=== PATIENT | male | born 1965 | race Caucasian/White ===

== ENCOUNTER 2024-10-05 08:55 | Inpatient (IN) | payer MEDICARE, MEDICAID ==
[~2024-10-05] VITALS: Ht 185.4 cm; Wt 76.0 kg
[2024-10-05 09:02] VITALS: PULSE 56; RESP 10; O2SAT 100
--- NOTE | 2024-10-05 09:39 | DVH ---
CLINICAL INFORMATION: 59 years old, Male; altered mental status. TECHNIQUE: Axial imaging was obtained through the brain without contrast. Coronal and sagittal refor matted images were obtained, reviewed, and stored. Images were reviewed in brain and bone windows. A ll CT scans at this medical facility are performed using dose modulation techniques as appropriate to a performed exam including the following: Automated exposure control was utilized; adjustment of the MA and/or KV according to patient size; and use of iterative reconstruction technique. CTDIvol = 62.38 mGy DLP = 1227.84 mGy-cm COMPARISON: None FINDINGS: There is no acute intracranial hemorrhage or extraaxial fluid collection. No mass effect o r midline shift. Scattered areas of hypoattenuation are seen in the periventricular and subcortical w malka matter, which are nonspecific but most likely sequelae of small vessel ischemic disease. There i s a more focal areaof encephalomalacia in the right frontal lobe, likely sequela of prior infarct. As ymmetric prominence of the right lateral ventricle compared to the left due to ex vacuo dilatation se condary to the adjacent encephalomalacia. The calvarium is unremarkable. Paranasal sinuses and ma stoid air cells are clear. IMPRESSION: 1. No CT evidence of acute intracranial abnormality. 2. Nonacute findings as described above.
--- NOTE | 2024-10-05 09:44 | ED.PDOC ---
HPI (NEURO) HPI Comments 59Y M with PMHx CVA (lt sided deficits) and ESRD on HD presents to ED via EMS for chief complaint seizure. Per EMS, pt began to seize during breakfast and possibly aspirated on the food. Upon EMS arrival to scene, pt was A&Ox0, nonverbal, and in postictal state. No h/o seizures reported. No symptoms reported at this time as pt is altered. Chief Complaint: ALOC Time Seen by MD: 09:08 Reviewed Notes: Nurses Notes, Speech Coach Notes, Medications, Allergies Information Source: Emergency Med Personnel Mode of Arrival: EMS Brought in by: EMS Severity: Severe Dizziness/Weakness Severity: Unable to do activities Headache Severity: None Timing: Minutes Duration: Since onset Prehospital treatment: 12 Lead EKG, Oxygen Seizure Quality: Single Episodes Onset: With light exertion Circumstances: Spontaneous Symptoms: Other Before: Normal After: Confusion History of: CVA Modifying factors: Nothing Associated Signs and Symptoms: None Past Medical History PAST MEDICAL HISTORY: CVA, ESRD Surgical History: Unobtainable Family History Family History: Unobtainable Social History Smoker: Unobtainable Alcohol: Unobtainable Drugs: Unobtainable Lives In: Unobtainable Unable to Obtain due to: Altered Mental Status, Medical Urgency Physical Exam General Appearance: No Apparent Distress, Normal HEENT: Normal ENT Inspection, Pharynx Normal, TMs Normal Neck: Full Range of Motion, Non-Tender, Normal, Normal Inspection Respiratory: Chest Non-Tender, Lungs Clear, No Accessory Muscle Use, No Respiratory Distress, Normal Breath Sounds Cardiovascular: No Edema, No JVD, No Murmur, No Gallop, Normal Peripheral Pulses, Regular Rate/Rhythm Breast Exam: Deferred Gastrointestinal: No Organomegaly, Non Tender, No Pulsatile Mass, Normal Bowel Sounds, Soft Genitalia: Deferred Pelvic: Deferred Rectal: Deferred Extremities: No calf tenderness, Normal capillary refill, Normal inspection, Normal range of motion, Non-tender, No pedal edema Musculoskeletal : Location: Left Apperance: Other (contracture) Neurologic: Alert, booking police officer II-XII nml as Tested, Motor Weakness (left sided weakness), Normal Affect, Normal Mood, No Sensory Deficits Cerebellar Function: Normal Reflexes: Normal Skin: Dry, Normal Color, Warm Lymphatic: No Adenopathy EKG EKG : Pulse Rate (adult): 57 [place]: LAD Cardiac Rhythm: Junctional Block: None Hypertrophy: None ST: Nonsp Was a procedure done? Was a procedure done?: No Differential Diagnosis (SZ) Seizure: Hyperventilation, Psychogenic Seizure, Anticonvulsant Withdrawl, Closed Head Injury, CVA/TIA, Drug Ingestion, Hypocalcemia, Hypoglycemia, Hyponatremia, Hypoxemia, Idiopathic, Mass Lesion, Syncope, Epilepsy-Break Through, Epilepsy-Status, Other (aspiration pneumonia) X-Ray, Labs, Meds, VS Vital Signs Date Time Temp Pulse Resp B/P (MAP) Pulse Ox O2 Delivery O2 Flow Rate FiO2 10/05/24 11:04 52 177/50 10/05/24 10:26 58 190/44 10/05/24 10:03 57 10/05/24 09:02 56 10 100 10/05/24 09:02 56 10 100 Nasal Cannula* 2 28 10/05/24 08:58 97.8 140 20 197/83 (121) 96 Lab Test 10/05/24 10:15 10/05/24 09:21 Range/Units Troponin I High Sensitivity 19 20 </=54 ng/L White Blood Count 3.3 L 4.4-10.8 10^3/uL Red Blood Count 3.38 L 4.5-5.90 10^6/uL Hemoglobin 11.7 L 13.5-17.5 g/dL Hematocrit 34.7 L 41.0-53.0 % Mean Corpuscular Volume 102.8 H 80.0-100.0 fL Mean Corpuscular Hemoglobin 34.6 H 28.0-32.0 pg Mean Corpuscular Hemoglobin Concent 33.7 32.0-36.0 g/dL Red Cell Distribution Width 17.7 H 11.8-14.3 % Platelet Count 161 140-450 10^3/uL Mean Platelet Volume 7.2 6.9-10.8 fL Neutrophils (%) (Auto) 67.3 37.0-80.0 % Lymphocytes (%) (Auto) 18.6 10.0-50.0 % Monocytes (%) (Auto) 6.2 0.0-12.0 % Eosinophils (%) (Auto) 6.9 0.0-7.0 % Basophils (%) (Auto) 1.0 0.0-2.0 % Neutrophils # (Auto) 2.2 1.6-8.6 10 ^3/uL Lymphocytes # (Auto) 0.6 0.4-5.4 10 ^3/uL Monocytes # (Auto) 0.2 0-1.3 10 ^3/uL Eosinophils # (Auto) 0.2 0-0.8 10 ^3/uL Basophils # (Auto) 0 0-0.2 10 ^3/uL Nucleated Red Blood Cells 0.1 % Sodium Level 140 136-145 mmol/L Potassium Level 5.1 3.5-5.1 mmol/L Chloride Level 105 98-107 mmol/L Carbon Dioxide Level 29 20-31 mmol/L Anion Gap 6 5-15 Blood Urea Nitrogen 54 H 9-23 mg/dL Creatinine 5.64 H 0.700-1.30 mg/dL Glomerular Filtration Rate Calc 11 >90 mL/min BUN/Creatinine Ratio 9.6 L 10.0-20.0 Serum Glucose 76 74-106 mg/dL Calcium Level 8.0 L 8.7-10.4 mg/dL Plasma/Serum Blood Alcohol < 3.0 <10 mg/dL Current Medications Medications (Trade) Dose Ordered Sig/Terrance Route Start Time Stop Time Status Last Admin Metoprolol Tartrate (Lopressor) 2.5 mg ONCE ONCE IV 10/05/24 10:15 10/05/24 10:16 DC 10/05/24 10:26 Levetiracetam 100 ml @ 400 mls/hr ONCE ONCE IV 10/05/24 10:30 10/05/24 10:44 DC 10/05/24 10:27 [place] [id number] Ph: [phone] DIAGNOSTIC IMAGING Diagnostic Imaging Report : [id number] Signed PATIENT: GILLIAN WEISS ACCT: [id number] UNIT: [id number] : 1965 LOC: ER ROOM / BED: / AGE / SEX: 59 / M ADM STATUS: REG ER SERVICE 5 ORDERING PHYSICIAN: MAE ODOM MD PROCEDURE(s): CXRP - CHEST PORTABLE REASON: r/o aspiration ORDER NUMBER(s): [id number], ACCESSION NUMBER(s): [id number] CHEST RADIOGRAPH Indication: r/o aspiration Technique: Single frontal view of the chest was obtained Comparison: None FINDINGS: Lines and Tubes: None Lungs: Bibasilar opacites. Pleura: Small bilateral effuions. No pneumothorax. Cardiomediastinal contours: Unremarkable Bones: No acute osseous abnormality. IMPRESSION: Bibasilar opacities with small bilateral effusions. Aspiration pneumonia not excluded. ATED BY: JATINDER BLAKE MD DICTATED DATE/TIME: 10/05/24941 SIGNED BY: JATINDER BLAKE MD SIGNED DATE/TIME: 10/05/24941 CC: [place] [address] Ph: [phone] DIAGNOSTIC IMAGING Diagnostic Imaging Report : [id number] Signed PATIENT: GILLIAN WEISS ACCT: [id number] UNIT: [id number] : 1965 LOC: ER ROOM / BED: / AGE / SEX: 59 / M ADM STATUS: REG ER SERVICE 7 ORDERING PHYSICIAN: MAE ODOM MD PROCEDURE(s): HWOCT - HEAD WITHOUT CONTRAST REASON: ALTERED ORDER NUMBER(s): [id number], ACCESSION NUMBER(s): [id number] CLINICAL INFORMATION: 59 years old, Male; altered mental status. TECHNIQUE: Axial imaging was obtained through the brain without contrast. Coronal and sagittal reformatted images were obtained, reviewed, and stored. Images were reviewed in brain and bone windows. All CT scans at this medical facility are performed using dose modulation techniques as appropriate to a performed exam including the following: Automated exposure control was utilized; adjustment of the MA and/or KV according to patient size; and use of iterative reconstruction technique. CTDIvol = 62.38 mGy DLP = 1227.84 mGy-cm COMPARISON: None FINDINGS: There is no acute intracranial hemorrhage or extraaxial fluid collection. No mass effect or midline shift. Scattered areas of hypoattenuation are seen in the periventricular and subcortical white matter, which are nonspecific but most likely sequelae of small vessel ischemic disease. There is a more focal areaof encephalomalacia in the right frontal lobe, likely sequela of prior infarct. Asymmetric prominence of the right lateral ventricle compared to the left due to ex vacuo dilatation secondary to the adjacent encephalomalacia. The calvarium is unremarkable. Paranasal sinuses and mastoid air cells are clear. IMPRESSION: 1. No CT evidence of acute intracranial abnormality. 2. Nonacute findings as described above. ATED BY: NIRMAL FLORES DO DICTATED DATE/TIME: 10/05/24935 SIGNED BY: NIRMAL FLORES DO SIGNED DATE/TIME: 10/05/24935 CC: Time of 1ST Reevaluation: 09:38 Reevaluation 1ST: Unchanged (cardiac rhythm- junctional ) Time of 2ND Reevaluation: 09:53 Reevaluation 2ND: Resolved (pt is now awake, alert, with at bedside. 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) Patient Education/Counseling: Diagnosis, Treatment, Prognosis, Need For Follow Up Family Education/Counseling: Diagnosis, Treatment, Prognosis, Need For Follow Up, No Family Present Additional Information I reviewed the following notes from patient's past medical encounters: None The following tests were ordered, and results were reviewed by me: EKG x3, CBC, BMP, Blood alcohol, UA, Troponin x3, CXR, CT head WO contrast Additional Information was gathered from interviewing the following independent historians: EMS I reviewed and agreed with the following test results read by other providers: CXR, CT head WO contrast I discussed treatment and results with medical personnel. pt is more alert, but still sleepy. he can be awaken to communicate but goes back to sleep. is at bedside ane reports witnessing him aspirate. cxr has findings to support aspiration. he will be admitted for lethargy, aspiration pneumonia, hypertensive emergency, eskd Departure 1 Departure Time of Disposition: 11:20 Impression: Primary Impression: Aspiration pneumonia Qualified Codes: J69.0 - Pneumonitis due to inhalation of food and vomit Additional Impressions: ESRD (end stage renal disease) Breakthrough seizure Hypertensive emergency Altered mental state Qualified Codes: R40.0 - Somnolence Disposition: ADMITTED INPATIENT Admit to: Tele Condition: Serious Discharged With: Self, Spouse Critical Care Note Critical Care Time?: Yes (55 min-critical care time only) Critical care comment: Due to concerns for patients condition deteriorating, the care required my highest level of attention and readiness to intervene. I assessed the patient, reviewed the medical records, ordered the appropriate tests and treatments, then reassessed for results and responsiveness. I communicated with medical personnel and consultants and formulated a plan of care. Total critical care time excludes any procedures Stability Stability form required: No Heart Score Heart Score: Heart Score Response (Comments) Value History N/A 0 EKG N/A 0 Age N/A 0 Risk Factors N/A 0 Troponin N/A 0 Total 0 I personally scribed for MAE ODOM MD ([facility]) on 10/05/24 at 09:44. Electronically submitted by Ariane Capps ([employer]). I personally scribed for MAE ODOM MD ([facility]) on 10/05/24 at 09:51. Electronically submitted by Ariane Capps ([employer]). MAE ODOM MD Oct 05, 2024 09:44
[2024-10-05 10:11] LABS: Anion Gap 6 (5-15); Carbon Dioxide 29 mmol/L (20-31); Chloride 105 mmol/L (98-107); Potassium 5.1 mmol/L (3.5-5.1); Sodium 140 mmol/L (136-145)
[2024-10-05] MEDS: cloNIDine HCL 0.1 MG TAB PO ONE (10:14)
[2024-10-05] MEDS: levETIRAcetam 500 MG TAB PO ONE (10:14)
[2024-10-05] MEDS: PHENYTOIN 100 MG/4 ML SUSP GT ONE (10:14)
[2024-10-05 10:15] LABS: Basophils # (auto) 0 10 ^3/uL (0-0.2); Eosinophils # (auto) 0.2 10 ^3/uL (0-0.8); Hematocrit 34.7 % (41.0-53.0); Lymphocytes # (auto) 0.6 10 ^3/uL (0.4-5.4); Mean Corpuscular Hemoglobin 34.6 pg (28.0-32.0); Monocytes # (auto) 0.2 10 ^3/uL (0-1.3); Neutrophils # (auto) 2.2 10 ^3/uL (1.6-8.6)
[2024-10-05 10:17] LABS: BUN/Creatinine Ratio 9.6 (10.0-20.0); Glucose 76 mg/dL (74-106)
[2024-10-05 10:19] LABS: Eosinophils % (auto) 6.9 % (0.0-7.0); Hemoglobin 11.7 g/dL (13.5-17.5); Lymphocytes % (auto) 18.6 % (10.0-50.0); Mean Corpuscular Hgb Conc. 33.7 g/dL (32.0-36.0); Mean Corpuscular Volume 102.8 fL (80.0-100.0); Monocytes % (auto) 6.2 % (0.0-12.0); Neutrophils % (auto) 67.3 % (37.0-80.0); Nucleated Red Blood Cells % 0.1 %; Platelet Count (auto) 161 10^3/uL (140-450); Red Blood Cells 3.38 10^6/uL (4.5-5.90); Red Cell Distribution Width 17.7 % (11.8-14.3); White Blood Cell 3.3 10^3/uL (4.4-10.8)
[2024-10-05 10:23] LABS: Blood Alcohol < 3.0 mg/dL (<10); Blood Urea Nitrogen 54 mg/dL (9-23)
[2024-10-05] MEDS: METOPROLOL TARTRATE 1MG/1ML-5ML VIAL IV ONE (10:26)
[2024-10-05] MEDS: levETIRAcetam 500 mg/100ml 100 ML IV ONE (10:27)
[2024-10-05] MEDS: cefTRIAXone 1GM/50ML D5W 50 ML IV ONE (11:42)
[2024-10-05] MEDS: CLINDAMYCIN 300MG IV 50 ML IV ONE (12:03)
[2024-10-05] MEDS: MORPHINE SULFATE INJ 2 MG/ml SYRG IV ONE (12:13)
[2024-10-05] MEDS: ONDANSETRON HCL 4 MG/2 ML VIAL IV ONE (12:14)
[2024-10-05] MEDS: DEXTROSE (50%) 50ML SYRG IV ONE ×2 (13:09→21:03)
[2024-10-05] MEDS: DEXTROSE 50% SYRINGE 50 ML IV ONE (13:09)
[2024-10-05] MEDS: D5W/SOD CHL 0.45% 1,000 ML IV ONE (13:18)
--- NOTE | 2024-10-05 13:22 | DVHHP2 ---
History of Present Illness Reason for Visit: Seizure History of Present Illness 59-year-old male past medical history hypertension hypothyroidism seizures CVA with left-sided weakness end-stage renal disease on dialysis Saturdays with Dr. Angel olea blind in left eye chief complaint patient was at home eating with and she he choked and after he chokes he started having seizure. She states it has never happened before. She states patient was having seizures since he had a stroke in 2019. He is currently bed-bound. And also use wheelchair. She takes full care the patient's. She stated that patient never had any issues with swollen he was improving but lately he has been having difficulty swallowing. He is currently A&O x3 right now patient was alert for to self and he is was postictal on my exam when evaluating patient's labs and imaging Zofran morphine clindamycin ceftriaxone was given Keppra metoprolol Dilantin clot clonidine white count was 3.3 hemoglobin was 11.7 34.7 creatinine was elevated at 5.64 and 54 troponin was negative x2 alcohol level was negative CT scan of the brain was negative chest x-ray shows pneumonia that is consistent with aspiration pneumonia. Patient also had his insulin this morning 14 units triesiba prior to eating but he did not eat any nutrition so his glucose was found to be 44 patient was given one amp of D50 in placed on D5 half-normal saline for now. With these findings we will admit patient ask for renal consult for dialysis we will send to jessica you until sugar improves Past Medical History See HPI above Past Surgical History See HPI above Family History Reviewed, non-contributory to the management of this case. It was reviewed with Ayleen [phone] since patient is not able to speak in his behalf Past Social History The patient lives at home, denies smoking, alcohol or illicit drugs abuse. Reviewed by Ayleen Review of Systems Constitutional: No: Fever, Chills, Sweats, Weakness, Malaise, Other Eyes: No: Pain, Vision change, Conjunctivae inflammation, Eyelid inflammation, Other, Redness ENT: No: Ear pain, Ear discharge, Nose pain, Nose discharge, Nose congestion, Mouth pain, Mouth swelling, Throat pain, Throat swelling, Other Respiratory: No: Cough, Dry, Shortness of breath, SOB with excertion, Wheezing, Hemoptysis, Pleuritic Pain, Sputum, Wheezing, Other Musculoskeletal: other (Left-sided weakness due to prior stroke); No: neck pain, shoulder pain, arm pain, back pain, hand pain, leg pain, foot pain Skin: No: Rash, Lesions, Jaundice, Bruising, Other Neurological: Confusion, Seizures; No: Weakness, Numbness, Incoordination, Change in speech, Other Allergies: Coded Allergies: NO KNOWN ALLERGIES (Unverified , 10/05/24) Exam Vital Signs Vital Signs Date Time Temp Pulse Resp B/P (MAP) Pulse Ox O2 Delivery O2 Flow Rate FiO2 10/05/24 12:00 51 10/05/24 11:04 177/50 10/05/24 11:00 10 100 10/05/24 09:35 97.3 97.3 10/05/24 09:02 Nasal Cannula* 2 28 General Appearance: Alert, Other (Sedated but arousable by speech) HEENT: Atraumatic, PERRLA, EOMI, Mucous membr. moist/pink Respiratory: Normal air movement, Other (Rales heard throughout) Cardiovascular: Regular rate, Normal S1, Normal S2, No murmurs Abdominal: Normal bowel sounds, Soft, No tenderness, No hepatospenomegaly, No masses Extremities: Other (left arm with contracture left side weakness form prior stroke ) Skin: No rashes, No breakdown, No significant lesion Neuro: Other (bed bound ) Labs/Xrays CT scan of the brain unremarkable Chest x-ray showed pneumonia aspiration I reviewed labs, imaging CT scan abdomen pelvis, EKG and all diagnostic studies on this patient from ED records and the medical chart Labs Test 10/05/24 10:15 10/05/24 09:21 Range/Units Troponin I High Sensitivity 19 </=54 ng/L White Blood Count 3.3 L 4.4-10.8 10^3/uL Red Blood Count 3.38 L 4.5-5.90 10^6/uL Hemoglobin 11.7 L 13.5-17.5 g/dL Hematocrit 34.7 L 41.0-53.0 % Mean Corpuscular Volume 102.8 H 80.0-100.0 fL Mean Corpuscular Hemoglobin 34.6 H 28.0-32.0 pg Mean Corpuscular Hemoglobin Concent 33.7 32.0-36.0 g/dL Red Cell Distribution Width 17.7 H 11.8-14.3 % Platelet Count 161 140-450 10^3/uL Mean Platelet Volume 7.2 6.9-10.8 fL Neutrophils (%) (Auto) 67.3 37.0-80.0 % Lymphocytes (%) (Auto) 18.6 10.0-50.0 % Monocytes (%) (Auto) 6.2 0.0-12.0 % Eosinophils (%) (Auto) 6.9 0.0-7.0 % Basophils (%) (Auto) 1.0 0.0-2.0 % Neutrophils # (Auto) 2.2 1.6-8.6 10 ^3/uL Lymphocytes # (Auto) 0.6 0.4-5.4 10 ^3/uL Monocytes # (Auto) 0.2 0-1.3 10 ^3/uL Eosinophils # (Auto) 0.2 0-0.8 10 ^3/uL Basophils # (Auto) 0 0-0.2 10 ^3/uL Nucleated Red Blood Cells 0.1 % Sodium Level 140 136-145 mmol/L Potassium Level 5.1 3.5-5.1 mmol/L Chloride Level 105 98-107 mmol/L Carbon Dioxide Level 29 20-31 mmol/L Anion Gap 6 5-15 Blood Urea Nitrogen 54 H 9-23 mg/dL Creatinine 5.64 H 0.700-1.30 mg/dL Glomerular Filtration Rate Calc 11 >90 mL/min BUN/Creatinine Ratio 9.6 L 10.0-20.0 Serum Glucose 76 74-106 mg/dL Calcium Level 8.0 L 8.7-10.4 mg/dL Plasma/Serum Blood Alcohol < 3.0 <10 mg/dL Assessment/Plan Assessment/Plan acute metabolic encephalopathy likely from seizure activity ct brain normal cont keppra for now seizure precautions ordered ativan prn seizure can consider neurology consult fu recs acute breakthrough seizure ct brain negative ordered keppra for now ordered ativan prn seizure seizure precautions ordered uds fu results ordered etoh level fu results acute aspiration pna found on cxr ordered mikeyo and sonia renal does for now monitor for resp distress Acute hypoglycemia likely related to insulin provided prior to the seizure and patient had not eatin Per nursing patient was provided insulin triesiba 14 units and glucose was found to be 44 Patient was started on D5 half-normal saline for now We will continue Accu-Cheks every hours until glucose stabilized If stabilized can change glucose two every 4 hours Patient has a continued NPO status until swallow evaluation was completed since aspiration was found on x-ray esrd on HD gets hd sat missed session today d/t seizure renal consult fu recs dr dumas group ordered mag and phos for now acute leukopenia ordered vanco and zosyn for now acute elevation in trop likely nstemi type 2 in setting of seizure ekg no stremi trend trops chronic problems with continuation of home medication htn cva with left side weakness hypothyroidism 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
[2024-10-05] MEDS: GLUCAGON EMERG KIT 1mg/1ml IV ONE (13:49)
[2024-10-05] MEDS ORDERED: NITROGLYCERIN 0.4 MG SL TAB SL PRN (14:45)
[2024-10-05] MEDS ORDERED: ONDANSETRON HCL 4 MG/2 ML VIAL IV PRN (14:45)
[2024-10-05] MEDS ORDERED: VANCOMYCIN PER PHARMACY 0 MG IV SCH (14:45)
[2024-10-05] MEDS ORDERED: LORazepam 2MG/ML-1ML VIAL IV PRN ×2 (14:45→20:45)
[2024-10-05] MEDS ORDERED: MORPHINE SULFATE INJ 2 MG/ml SYRG IV PRN (14:45)
[2024-10-05 15:17] LABS: Magnesium 2.4 mg/dL (1.6-2.6)
[2024-10-05 15:18] LABS: Phosphorus 4.3 mg/dL (2.4-5.1)
[2024-10-05] MEDS: VANCOMYCIN 1.5GM/300ML 300 ML IV ONE (15:51)
[2024-10-05] MEDS ORDERED: PHEN1CAP38 PO (16:40)
[2024-10-05] MEDS ORDERED: AML5T PO (16:40)
[2024-10-05] MEDS ORDERED: CARV12.544 PO (16:40)
[2024-10-05] MEDS ORDERED: LEVE500T40 PO (16:40)
[2024-10-05] MEDS ORDERED: GABA-1308 PO (16:40)
[2024-10-05] MEDS ORDERED: PHEN50CH8 OR (16:40)
[2024-10-05] MEDS ORDERED: LEVO-848 PO (16:40)
[2024-10-05] MEDS ORDERED: ATOR20TA50 PO (16:40)
[2024-10-05] MEDS ORDERED: HYDR100T10 PO (16:40)
[2024-10-05] MEDS ORDERED: SUCR5CHW PO (16:40)
[2024-10-05] MEDS ORDERED: PAR20T PO (16:40)
[2024-10-05] MEDS ORDERED: ASPI81CH59 PO (16:40)
[2024-10-05] MEDS: hydrALAZINE HCL 20 MG/ML VL IV PRN (18:27)
--- NOTE | 2024-10-05 19:44 | DVHINCON2 ---
Date of service: Oct 05, 2024 Referring Physician Cindy Reason for Consultation Eval for breakthrough seizure History of Present Illness Mr. Fowler is a 59 years old gentleman with a history of hypertension, diabetes, dyslipidemia, end-stage renal failure on hemodialysis, stroke with residual left-sided hemiplegia, depression, seizure disorder, he came to the [facility] on 10/01/24 for ALOC. At this time, he is awake, but is only oriented to person, and place, not able to provide a history, the information is often from his , he was not a good historian. I saw him on 04/08/2022, 07/09/22 for seizure (MR #:[id number]) On 10/05/2024, when the patient was eating breakfast with his , he suddenly become nonresponsive, but there was no typical symptoms of his seizure. When the EMS came over, the patient was awake, but not oriented at all, nonverbal. The patient has a seizure disorder since 05/2021, he has seizures rarely since he was on Keppra, according to his , during the seizure activity, he has shaking all over body more so on the right side, complete nonresponsive, the last seizure was 09/12/2024 and this is only seizure he had in 2023. He was on Keppra 250 mg b.i.d., Dilantin suspension 8ml daily He had a stroke in 2019 which caused left-sided hemiplegia. He is on aspirin 81 my daily, Lipitor 10 mg daily He has left upper extremity spasticity According to his , after stroke, the patient does not know the year and the month, but she denies major memory problem with dementia She has a neurologist Plasma alcohol, 10/05/2024: <3 WBC/HB/PLT/MCV, 10/05/2024: 3.3/11.7/161/102.8 BUN/CR, 10/05/2024: 54/5.64 Chest x-ray, 10/05/2024: Bibasilar opacities with small bilateral effusions. Aspiration pneumonia not excluded CT head, 07/09/2022: 1. No acute intracranial hemorrhage. 2. Old infarcts at the centrum semiovales extending into the basal ganglias, right greater left. 2. Mild generalized volume loss in the background of scattered chronic ischemic small vessel disease changes. MRI can be considered for further evaluation if symptoms persist or continued clinical concern. MRI head, 04/08/2022: There is large chronic right basal ganglion, right insular cortex region right operculum hemorrhagic infarct with associated encephalomalacia. There is associated wallerian degeneration. There is moderate chronic microvascular ischemic disease of supratentorial white matter. There is no acute infarct. There is no acute hemorrhage CTA neck, 04/29/2022: No evidence of a dissection, aneurysm, or stenosis CT head, 10/05/2024: 1. No CT evidence of acute intracranial abnormality. 2. Nonacute findings as described above Past Medical History Hypertension, diabetes, dyslipidemia, end-stage renal failure on hemodialysis, hypothyroidism, stroke with left-sided residual weakness Past Surgical History Appendectomy Family History Diabetes Social History He is nontobacco smoker, no history of alcohol recreational substance abuse medication Allergies: Coded Allergies: NO KNOWN ALLERGIES (Unverified , 10/05/24) Home Meds Reported Medications Phenytoin Sodium (DILANTIN CAPSULE) 100 Mg Cp, 100 MG PO, CAP 10/05/24 Levothyroxine Sodium (SYNTHROID TABLET) 50 Mcg Tb, 1 TAB PO DAILY, #30 TAB 5 Refills 10/05/24 Paroxetine (PAXIL TABLET) 20 Mg Tb, 10 TAB PO DAILY, #30 TAB 5 Refills 10/05/24 Phenytoin (PHENYTOIN) 50 Mg Chw, 50 MG OR, TAB.CHEW 10/05/24 Polynuclear Iron(III)-Oxyhydro (Velphoro) 500 Mg Chw, 500 MG PO TID, TAB.CHEW 10/05/24 Atorvastatin Calcium (ATORVASTATIN CALCIUM) 20 Mg Tab, 1 TAB PO DAILY@DINNER, #30 TAB 5 Refills 10/05/24 Gabapentin (Gabapentin) 100 Mg Cap, 1 CAP PO DAILY@DINNER, #90 CAP 2 Refills 10/05/24 Levetiracetam (Keppra) 500 Mg Tab, 250 TAB PO BID, #180 TAB 3 Refills 10/05/24 Hydralazine Hcl (Hydralazine Hcl) 100 Mg Tab, 1 TAB PO BID, #90 TAB 5 Refills 10/05/24 Carvedilol (Carvedilol) 12.5 Mg Tab, 1 TAB PO BID, #180 TAB 1 Refill 10/05/24 Aspirin (Aspirin Low Dose) 81 Mg Chw, 1 TAB PO DAILY, #30 TAB 3 Refills 10/05/24 Amlodipine Besylate (NORVASC TABLET) 5 Mg Tb, 10 TAB PO DAILY, #30 TAB 5 Refills 10/05/24 Current Medications Current Medications Medications (Trade) Dose Ordered Sig/Terrance Route PRN Reason Start Time Stop Time Status Last Admin Ondansetron HCl (Zofran) 4 mg Q4HP PRN IV NAUSEA / VOMITING 10/05/24 14:45 Enoxaparin Sodium (Lovenox) 30 mg DAILY SC 10/06/24 10:00 Morphine Sulfate 2 mg Q4HPRN PRN IV SEVERE PAIN (7-10 PAIN SCALE) 10/05/24 14:45 Nitroglycerin (Ntrostat Sublingual) 0.4 mg Q5MINP PRN SL FOR CHEST PAIN 10/05/24 14:45 Levetiracetam 100 ml @ 400 mls/hr BID IV 10/05/24 22:00 10/05/24 18:13 DC Vancomycin HCl 0 ml @ 0 mls/hr UD IV 10/05/24 14:45 Piperacillin Sod/ Tazobactam Sod 50 ml @ 12.5 mls/hr Q12HR IV 10/05/24 22:00 Lorazepam (Ativan Inj) 1 mg Q6HP PRN IV ANXIETY 10/05/24 14:45 Phenytoin Sodium 200 mg Q12HR IV 10/05/24 22:00 Hydralazine HCl (Apresoline Injection) 10 mg Q6HP PRN IV SBP>150 10/05/24 18:00 10/05/24 18:27 Levetiracetam 100 ml @ 400 mls/hr BID IV 10/05/24 22:00 Levothyroxine Sodium (Synthroid Injection) 50 mcg DAILY IV 10/06/24 10:00 Review of Systems As above, the other systems are negative Vital Signs Vital Signs Date Time Temp Pulse Resp B/P (MAP) Pulse Ox O2 Delivery O2 Flow Rate FiO2 10/05/24 19:00 51 8 169/67 (101) 96 10/05/24 09:35 97.3 97.3 10/05/24 09:02 Nasal Cannula* 2 28 Physical Exam GENERAL EXAM: General: the patient is well developed and nourished. No acute distress. HEENT: Normocephalic, neck is supple, no carotid bruits. No mass. RESPIRATORY: Normal respiratory effort with symmetrical lung expansion. Lungs clear to auscultation. CARDIOVASCULAR: Regular rate and rhythm with no murmurs. S1, S2. ABDOMEN: Soft, nontender, normal bowel sound Left upper extremity spasticity NEUROLOGICAL: MENTAL STATUS: Awake and alert. Oriented to person, place SPEECH, LANGUAGE, HIGHER CORTICAL FUNCTION: no aphasia or dysathria. CRANIAL NERVES: #2: Deferred #3,4,6: Pupils are equal, round and reactive. EOMs full and conjugate. Mild bilateral gaze evoked nystagmus. #5: Facial sensation intact in all three divisions bilaterally. Mandibular strength intact. #7: Facial muscles symmetrical and strength intact. #8: Hearing grossly normal to voice. #9,10: Deferred #11: Trapezius and sternomastoid strength intact bilaterally. #12: Tongue midline. No fasciculations or atrophy. SENSATION: Sensation to touch and pinprick is okay. MOTOR: Normal tone in the upper and lower extremity. Atrophy in the left extremities. No fasciculations. He moves the right arm than leg, no movement in the left extremities REFLEXES: Deep tendon reflexes are symmetrical. No pathological reflexes. CEREBELLAR/COORDINATION: Deferred GAIT/STATION: deferred. Labs/Diagnostic Data Labs Test 10/05/24 15:45 10/05/24 10:15 10/05/24 09:21 Range/Units POC Glucose 133 H 70-106 mg/dl Troponin I High Sensitivity 19 </=54 ng/L White Blood Count 3.3 L 4.4-10.8 10^3/uL Red Blood Count 3.38 L 4.5-5.90 10^6/uL Hemoglobin 11.7 L 13.5-17.5 g/dL Hematocrit 34.7 L 41.0-53.0 % Mean Corpuscular Volume 102.8 H 80.0-100.0 fL Mean Corpuscular Hemoglobin 34.6 H 28.0-32.0 pg Mean Corpuscular Hemoglobin Concent 33.7 32.0-36.0 g/dL Red Cell Distribution Width 17.7 H 11.8-14.3 % Platelet Count 161 140-450 10^3/uL Mean Platelet Volume 7.2 6.9-10.8 fL Neutrophils (%) (Auto) 67.3 37.0-80.0 % Lymphocytes (%) (Auto) 18.6 10.0-50.0 % Monocytes (%) (Auto) 6.2 0.0-12.0 % Eosinophils (%) (Auto) 6.9 0.0-7.0 % Basophils (%) (Auto) 1.0 0.0-2.0 % Neutrophils # (Auto) 2.2 1.6-8.6 10 ^3/uL Lymphocytes # (Auto) 0.6 0.4-5.4 10 ^3/uL Monocytes # (Auto) 0.2 0-1.3 10 ^3/uL Eosinophils # (Auto) 0.2 0-0.8 10 ^3/uL Basophils # (Auto) 0 0-0.2 10 ^3/uL Nucleated Red Blood Cells 0.1 % Sodium Level 140 136-145 mmol/L Potassium Level 5.1 3.5-5.1 mmol/L Chloride Level 105 98-107 mmol/L Carbon Dioxide Level 29 20-31 mmol/L Anion Gap 6 5-15 Blood Urea Nitrogen 54 H 9-23 mg/dL Creatinine 5.64 H 0.700-1.30 mg/dL Glomerular Filtration Rate Calc 11 >90 mL/min BUN/Creatinine Ratio 9.6 L 10.0-20.0 Serum Glucose 76 74-106 mg/dL Calcium Level 8.0 L 8.7-10.4 mg/dL Phosphorus Level 4.3 2.4-5.1 mg/dL Magnesium Level 2.4 1.6-2.6 mg/dL Plasma/Serum Blood Alcohol < 3.0 <10 mg/dL Assessment 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 Cognitive dysfunction secondary to stroke Aspiration, pneumonia Plan/Recommendation Monitoring Supportive treatment NANNETTE care Dilantin level Follow-up labs IV antibiotics Dilantin 125mg/5ml, 8ml Qd Keppra 250mg Bid Ativan for seizure breakthrough Aspirin 81 mg Daily Lipitor 20 mg daily Further address his spasticity as outpatient More recommendation per clinical course Prognosis: Poor This medical document was created using an electronic medical record system with [employer] dictation system. Although this document has been carefully reviewed, there may still be some phonetic and typographical errors. These areas are purely typographical due to imperfections of the software programs, and do not reflect any compromise in the patient's medical care. Plan discussed with: Spouse, Other ROXANN MARINELLI MD Oct 05, 2024 19:44
[2024-10-05 20:00] VITALS: BP 170/71; PULSE 56; RESP 15; O2SAT 97
[2024-10-05 20:36] VITALS: PULSE 56; RESP 17; O2SAT 98
[2024-10-05 21:00] VITALS: BP 158/58; PULSE 54; RESP 16; O2SAT 96
[2024-10-05 21:37] VITALS: RESP 15; O2SAT 96
[2024-10-05] MEDS: PIPERACILLIN-TAZOB 2.25GM 50 ML IV SCH (21:57)
[2024-10-05] MEDS ORDERED: SODIUM CHL 0.9% IV SCH (22:00)
[2024-10-05] MEDS ORDERED: levETIRAcetam 500 mg/100ml 100 ML IV SCH (22:00)
[2024-10-05] MEDS ORDERED: PHENYTOIN SODIUM 50 MG/ML 2ML VIAL IV SCH (22:00)
[2024-10-05] MEDS ORDERED: levETIRAcetam 1000 mg/100ml 100 ML IV SCH (22:00)
[2024-10-05] MEDS ORDERED: LEVETIRACETAM IV SCH (22:00)
[2024-10-05] MEDS: levETIRAcetam 500 MG/5ML ORAL SOLN UD PO SCH (22:00)
[2024-10-05] MEDS: ACCU-CHEK COMFORT CURVE STRIP VI SCH (22:04)
[2024-10-06] VITALS (8 sets, daily range): BP systolic 114–170; BP diastolic 30–43; PULSE 44–56; RESP 10–18; TEMP 97.6–98.1; O2SAT 95–99
[2024-10-06] MEDS: DEXTROSE (50%) 50ML SYRG IV STA (03:30)
[2024-10-06] MEDS: DEXTROSE 50% SYRINGE 50 ML IV ONE (03:31)
--- NOTE | 2024-10-06 07:42 | ECG ---
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
[2024-10-06] MEDS: DEXTROSE (50%) 50ML SYRG IV PRN (08:15)
[2024-10-06 08:56] LABS: Basophils # (auto) 0 10 ^3/uL (0-0.2); Eosinophils # (auto) 0.3 10 ^3/uL (0-0.8); Monocytes # (auto) 0.2 10 ^3/uL (0-1.3); Neutrophils # (auto) 1.9 10 ^3/uL (1.6-8.6); Platelet Count (auto) 140 10^3/uL (140-450)
[2024-10-06 08:58] LABS: Basophils % (auto) 1.1 % (0.0-2.0); Eosinophils % (auto) 8.4 % (0.0-7.0); Hematocrit 32.7 % (41.0-53.0); Lymphocytes # (auto) 0.6 10 ^3/uL (0.4-5.4); Lymphocytes % (auto) 19.6 % (10.0-50.0); Mean Corpuscular Hemoglobin 34.4 pg (28.0-32.0); Mean Corpuscular Hgb Conc. 33.7 g/dL (32.0-36.0); Mean Corpuscular Volume 102.2 fL (80.0-100.0); Monocytes % (auto) 7.5 % (0.0-12.0); Neutrophils % (auto) 63.4 % (37.0-80.0); Nucleated Red Blood Cells % 0.3 %; Red Cell Distribution Width 17.2 % (11.8-14.3)
[2024-10-06 09:06] LABS: Alanine Aminotransferase 33 U/L (7-40); Anion Gap 8 (5-15); BUN/Creatinine Ratio 9.9 (10.0-20.0); Carbon Dioxide 26 mmol/L (20-31); Chloride 105 mmol/L (98-107); Potassium 4.9 mmol/L (3.5-5.1); Sodium 139 mmol/L (136-145)
[2024-10-06 09:07] LABS: Aspartate Aminotransferase 34 U/L (13-40)
[2024-10-06 09:12] LABS: Albumin 3.1 g/dL (3.2-4.8); Alkaline Phosphatase 205 U/L (46-116); Bilirubin, Total < 0.2 mg/dL (0.2-1.0); Blood Urea Nitrogen 61 mg/dL (9-23); Calcium 7.9 mg/dL (8.7-10.4); Glucose 52 mg/dL (74-106); Total Protein 5.6 g/dL (5.7-8.2)
[2024-10-06] MEDS: ACCU-CHEK COMFORT CURVE STRIP VI SCH ×2 (10:00→20:00)
[2024-10-06] MEDS: PHENYTOIN 100 MG/4 ML SUSP PO SCH (10:00)
[2024-10-06] MEDS: ENOXAPARIN SOD 30 MG/0.3 ML SYRINGE SC SCH (10:00)
[2024-10-06] MEDS: LEVOTHYROXINE SODIUM 100 MCG/5 ML INJ IV SCH (10:19)
[2024-10-06] MEDS: LEVETIRACETAM IV ONE (11:30)
[2024-10-06] MEDS: SODIUM CHL 0.9% IV ONE (11:30)
[2024-10-06] MEDS: DEXTROSE 10% 1,000 ML IV SCH (11:52)
--- NOTE | 2024-10-06 13:16 | DVHPN2 ---
Progress Note - Dictate Date Seen: Oct 06, 2024 Medical Necessity Reason Pt with a Central, PICC or Fol: No Subjective Mr. Fowler is a 59 years old gentleman with a history of hypertension, diabetes, dyslipidemia, end-stage renal failure on hemodialysis, stroke with residual left-sided hemiplegia, depression, seizure disorder, he came to the [facility] on 10/01/24 for ALOC I saw him on 04/08/2022, 07/09/22 for seizure (MR #:[id number]) I have seen and examined the patient, discussed with his nurse, in the room, and I interviewed him again for the history She reports the patient typically only know his name and date of , he does not know the place, the year and month Again she confirm the Keppra is 250 mg b.i.d., phenytoin 8ml daily She confirms the only seizure he had in 2023 was in August She was not quite she was if he had seizure before he was brought to the [facility] this time Plasma alcohol, 10/05/2024: <3 Dilantin, 10/06/2024: <2 WBC/HB/PLT/MCV, 10/05/2024: 3.3/11.7/161/102.8 BUN/CR, 10/05/2024: 54/5.64 Chest x-ray, 10/05/2024: Bibasilar opacities with small bilateral effusions. Aspiration pneumonia not excluded CT head, 07/09/2022: 1. No acute intracranial hemorrhage. 2. Old infarcts at the centrum semiovales extending into the basal ganglias, right greater left. 2. Mild generalized volume loss in the background of scattered chronic ischemic small vessel disease changes. MRI can be considered for further evaluation if symptoms persist or continued clinical concern. MRI head, 04/08/2022: There is large chronic right basal ganglion, right insular cortex region right operculum hemorrhagic infarct with associated encephalomalacia. There is associated wallerian degeneration. There is moderate chronic microvascular ischemic disease of supratentorial white matter. There is no acute infarct. There is no acute hemorrhage CTA neck, 04/29/2022: No evidence of a dissection, aneurysm, or stenosis CT head, 10/05/2024: 1. No CT evidence of acute intracranial abnormality. 2. Nonacute findings as described above vital signs Vital Sign Date Time Temp Pulse Resp B/P (MAP) Pulse Ox O2 Delivery O2 Flow Rate FiO2 10/06/24 12:00 46 10/06/24 09:00 19 165/48 (87) 100 10/06/24 07:22 98.3 98.3 10/06/24 07:22 Room Air* 0 21 Total Intake and Output 10/05/24 10/05/24 10/06/24 15:00 23:00 07:00 Intake Total 251 ml 552.5 ml 277.5 ml Output Total 0 ml Balance 251 ml 552.5 ml 277.5 ml medications Current Medications Medications Dose Ordered Sig/Terrance Route Start Time Stop Time Status Last Admin Dose Admin Ondansetron HCl 4 mg Q4HP PRN IV 10/05/24 14:45 Enoxaparin Sodium 30 mg DAILY SC 10/06/24 10:00 Morphine Sulfate 2 mg Q4HPRN PRN IV 10/05/24 14:45 Nitroglycerin 0.4 mg Q5MINP PRN SL 10/05/24 14:45 Vancomycin HCl 0 ml @ 0 mls/hr UD IV 10/05/24 14:45 Piperacillin Sod/ Tazobactam Sod 50 ml @ 12.5 mls/hr Q12HR IV 10/05/24 22:00 10/06/24 10:17 12.5 MLS/HR Lorazepam 1 mg Q6HP PRN IV 10/05/24 14:45 Hydralazine HCl 10 mg Q6HP PRN IV 10/05/24 18:00 10/06/24 00:49 10 MG Levothyroxine Sodium 50 mcg DAILY IV 10/06/24 10:00 10/06/24 10:19 50 MCG Phenytoin Sodium 200 mg DAILY PO 10/06/24 10:00 Lorazepam 1 mg Q5MINP PRN IV 10/05/24 20:45 Levetiracetam 250 mg/Sodium Chloride 52.5 ml @ 206.107 mls/hr BID IV 10/05/24 22:00 Cancel Diagnostic Test (Pha) 1 strip Q2HR 10/06/24 10:00 10/06/24 12:19 1 STRIP Dextrose 50 ml UD PRN IV 10/06/24 08:30 10/06/24 08:15 50 ML Dextrose 1,000 ml @ 125 mls/hr Q8H IV 10/06/24 11:15 10/06/24 11:52 125 MLS/HR Levetiracetam 250 mg/Sodium Chloride 52.5 ml @ 210 mls/hr BID IV 10/06/24 22:00 objective General: the patient is well developed and nourished. No acute distress. Left upper extremity spasticity MENTAL STATUS: Awake and alert. Oriented to person, place SPEECH, LANGUAGE, HIGHER CORTICAL FUNCTION: no aphasia or dysathria. CRANIAL NERVES: Pupils are equal, round and reactive. EOMs full and conjugate. Mild bilateral gaze evoked nystagmus. Facial sensation intact in all three divisions bilaterally. Mandibular strength intact. Facial muscles symmetrical and strength intact. SENSATION: Sensation to touch and pinprick is okay. MOTOR: Diminished tone in the left lower extremity. Atrophy in the left extremities. No fasciculations. He moves the right arm and leg, no movement in the left extremities REFLEXES: Deep tendon reflexes are symmetrical. No pathological reflexes. 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 Cognitive dysfunction secondary to stroke Aspiration, pneumonia Assessment/Plan Monitoring Supportive treatment NANNETTE care Dilantin level Follow-up labs IV antibiotics Extra Dilantin 1000 mg IV x1 Dilantin 100mg IV Bid Keppra 250mg IV Bid Ativan for seizure breakthrough Aspirin 81 mg Daily Lipitor 20 mg daily Further address his spasticity as outpatient More recommendation per clinical course This medical document was created using an electronic medical record system with [employer] dictation system. Although this document has been carefully reviewed, there may still be some phonetic and typographical errors. These areas are purely typographical due to imperfections of the software programs, and do not reflect any compromise in the patient's medical care. Prognosis poor Plan discussed with: Spouse, Other Critical Care Time(min): 40 ROXANN MARINELLI MD Oct 06, 2024 13:16
--- NOTE | 2024-10-06 13:23 | DVHPN2 ---
Reviewed: Care Plan, H&P, Labs, Medications, Previous Orders, Radiology Changes from previous H/P or p: No Changes Eyes: No Pain, No Vision change, No Conjunctivae inflammation, No Eyelid inflammation, No Other, No Redness ENT: No Ear pain, No Ear discharge, No Nose pain, No Nose discharge, No Nose congestion, No Mouth pain, No Mouth swelling, No Throat pain, No Throat swelling, No Other Respiratory: No Cough, No Dry, No Shortness of breath, No SOB with excertion, No Wheezing, No Hemoptysis, No Pleuritic Pain, No Sputum, No Other Musculoskeletal: other (Left-sided weakness due to prior stroke); No neck pain, No shoulder pain, No arm pain, No back pain, No hand pain, No leg pain, No foot pain Skin: No Rash, No Lesions, No Jaundice, No Bruising, No Other Objective Vitals Vital Signs Date Time Temp Pulse Resp B/P (MAP) Pulse Ox O2 Delivery O2 Flow Rate FiO2 10/06/24 13:01 97.1 43 9 147/34 (71) 98 97.1 10/06/24 07:22 Room Air* 0 21 Intake/Output Intake and Output 10/06/24 07:00 Intake Total 1081.0 ml Output Total 0 ml Balance 1081.0 ml Intake Oral 0 ml IV Total 1081.0 ml Output Urine Total 0 ml Medications Current Medications Medications Dose Ordered Sig/Terrance Route Start Time Stop Time Status Last Admin Dose Admin Ondansetron HCl 4 mg Q4HP PRN IV 10/05/24 14:45 Enoxaparin Sodium 30 mg DAILY SC 10/06/24 10:00 Morphine Sulfate 2 mg Q4HPRN PRN IV 10/05/24 14:45 Nitroglycerin 0.4 mg Q5MINP PRN SL 10/05/24 14:45 Vancomycin HCl 0 ml @ 0 mls/hr UD IV 10/05/24 14:45 Piperacillin Sod/ Tazobactam Sod 50 ml @ 12.5 mls/hr Q12HR IV 10/05/24 22:00 10/06/24 10:17 12.5 MLS/HR Lorazepam 1 mg Q6HP PRN IV 10/05/24 14:45 Hydralazine HCl 10 mg Q6HP PRN IV 10/05/24 18:00 10/06/24 00:49 10 MG Levothyroxine Sodium 50 mcg DAILY IV 10/06/24 10:00 10/06/24 10:19 50 MCG Phenytoin Sodium 200 mg DAILY PO 10/06/24 10:00 Lorazepam 1 mg Q5MINP PRN IV 10/05/24 20:45 Levetiracetam 250 mg/Sodium Chloride 52.5 ml @ 206.107 mls/hr BID IV 10/05/24 22:00 Cancel Diagnostic Test (Pha) 1 strip Q2HR 10/06/24 10:00 10/06/24 12:19 1 STRIP Dextrose 50 ml UD PRN IV 10/06/24 08:30 10/06/24 08:15 50 ML Dextrose 1,000 ml @ 125 mls/hr Q8H IV 10/06/24 11:15 10/06/24 11:52 125 MLS/HR Levetiracetam 250 mg/Sodium Chloride 52.5 ml @ 210 mls/hr BID IV 10/06/24 22:00 Laboratory Results Laboratory Tests 10/06/24 08:11 Chemistry Test 10/06/24 08:11 Albumin 3.1 g/dL (3.2-4.8) L Calcium Level 7.9 mg/dL (8.7-10.4) L Total Protein 5.6 g/dL (5.7-8.2) L LFT Test 10/06/24 08:11 Alanine Aminotransferase (ALT) 33 U/L (7-40) Alkaline Phosphatase 205 U/L (46-116) H Aspartate Amino Transferase (AST) 34 U/L (13-40) Total Bilirubin < 0.2 mg/dL (0.2-1.0) L Labs and/or images reviewed: Labs reviewed by me, Image(s) reviewed by me Assessment/Plan Assessment/Plan Breakthrough seizures: Continue home medication phenytoin and Keppra: Neurology consult by Dr. 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 Ortiz group Hypoglycemia Patient noncompliance low levels of seizure medications Possible aspiration pneumonia: Zosyn vancomycin Time spent 65 minutes Patient is full code Advanced care planning time 20 minutes Plan discussed with: Patient My Orders Orders - VIRIDIANA ROSS MD Procedure Category Date Status Time Dextrose 10% PHA 10/06/24 In Process 11:15 Urine Bacterial ADELE 10/06/24 Logged Culture 11:07 Blood Culture ADELE 10/06/24 In Process 11:07 Pharmacy [facility] 10/06/24 In Process Clarification: 11:18 Levetiracetam Inj PHA 10/06/24 In Process (Arianna) 22:00 Date of Service: Oct 06, 2024 Billing Provider: VIRIDIANA ROSS MD Common Visit Codes: [id number] CARE 30-74 MIN VIRIDIANA ROSS MD Oct 06, 2024 13:23
[2024-10-06] MEDS: VANCOMYCIN 500mg/100mL 100 ML IV ONE (13:47)
[2024-10-06] MEDS: PHENYTOIN IV DILANTIN 1,000 MG in SODIUM CHL 0.9% 250 ML IV ONE (14:44)
[2024-10-06] MEDS ORDERED: PARO10TA93 PO (15:37)
[2024-10-06] MEDS ORDERED: LEVE250T78 PO (15:37)
[2024-10-06] MEDS ORDERED: AMLO1TAB23 PO (15:37)
[2024-10-06] MEDS ORDERED: PHEN125S PO (15:37)
[2024-10-06] MEDS ORDERED: LEVO25TA6 PO (15:37)
[2024-10-06] MEDS ORDERED: OMEP-448 PO (15:37)
[2024-10-06] MEDS ORDERED: EMPA1TAB3 PO (15:37)
[2024-10-06] MEDS: InsuLIN REG 1unit/0.01ml Soln (100units/ml) SC SCH (20:35)
[2024-10-06] MEDS: PHENYTOIN SODIUM 50 MG/ML 2ML VIAL IV SCH (21:34)
[2024-10-06] MEDS: SODIUM CHL 0.9% IV SCH (21:34)
[2024-10-06] MEDS: LEVETIRACETAM IV SCH (21:34)
[2024-10-07] VITALS (8 sets, daily range): BP systolic 111–177; BP diastolic 38–62; PULSE 55–72; RESP 12–18; TEMP 97.1–98.7; O2SAT 96–98
--- NOTE | 2024-10-07 09:53 | DVHPN2 ---
Reviewed: Care Plan, H&P, Labs, Medications, Previous Orders, Radiology Changes from previous H/P or p: No Changes Eyes: No Pain, No Vision change, No Conjunctivae inflammation, No Eyelid inflammation, No Other, No Redness ENT: No Ear pain, No Ear discharge, No Nose pain, No Nose discharge, No Nose congestion, No Mouth pain, No Mouth swelling, No Throat pain, No Throat swelling, No Other Respiratory: No Cough, No Dry, No Shortness of breath, No SOB with excertion, No Wheezing, No Hemoptysis, No Pleuritic Pain, No Sputum, No Other Musculoskeletal: other (Left-sided weakness due to prior stroke); No neck pain, No shoulder pain, No arm pain, No back pain, No hand pain, No leg pain, No foot pain Skin: No Rash, No Lesions, No Jaundice, No Bruising, No Other Objective Vitals Vital Signs Date Time Temp Pulse Resp B/P (MAP) Pulse Ox O2 Delivery O2 Flow Rate FiO2 10/07/24 08:38 98.1 60 16 144/47 (79) 97 98.1 10/06/24 20:36 Room Air* 0 21 Intake/Output Intake and Output 10/07/24 07:00 Intake Total 1445.0 ml Balance 1445.0 ml IV Total 1445.0 ml Medications Current Medications Medications Dose Ordered Sig/Terrance Route Start Time Stop Time Status Last Admin Dose Admin Ondansetron HCl 4 mg Q4HP PRN IV 10/05/24 14:45 Enoxaparin Sodium 30 mg DAILY SC 10/06/24 10:00 Morphine Sulfate 2 mg Q4HPRN PRN IV 10/05/24 14:45 Nitroglycerin 0.4 mg Q5MINP PRN SL 10/05/24 14:45 Vancomycin HCl 0 ml @ 0 mls/hr UD IV 10/05/24 14:45 Piperacillin Sod/ Tazobactam Sod 50 ml @ 12.5 mls/hr Q12HR IV 10/05/24 22:00 10/06/24 21:50 12.5 MLS/HR Lorazepam 1 mg Q6HP PRN IV 10/05/24 14:45 Hydralazine HCl 10 mg Q6HP PRN IV 10/05/24 18:00 10/06/24 00:49 10 MG Levothyroxine Sodium 50 mcg DAILY IV 10/06/24 10:00 10/06/24 10:19 50 MCG Lorazepam 1 mg Q5MINP PRN IV 10/05/24 20:45 Levetiracetam 250 mg/Sodium Chloride 52.5 ml @ 206.107 mls/hr BID IV 10/05/24 22:00 Cancel Levetiracetam 250 mg/Sodium Chloride 52.5 ml @ 210 mls/hr BID IV 10/06/24 22:00 10/06/24 21:34 210 MLS/HR Phenytoin Sodium 100 mg Q12HR IV 10/06/24 22:00 10/06/24 21:34 100 MG Diagnostic Test (Pha) 1 strip IQ4HR 10/06/24 20:00 10/07/24 04:13 1 STRIP Insulin Human Regular IQ4HR SC 10/06/24 20:00 Dextrose 50 ml UD PRN IV 10/06/24 18:00 Laboratory Results Laboratory Tests 10/06/24 08:11 Labs and/or images reviewed: Labs reviewed by me, Image(s) reviewed by me Assessment/Plan Assessment/Plan Breakthrough seizures: Continue home medication phenytoin and Keppra: Neurology consult by Dr. 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 Ortiz group Hypoglycemia Patient noncompliance low levels of seizure medications Possible aspiration pneumonia: Zosyn vancomycin Time spent 65 minutes Patient is full code Advanced care planning time 20 minutes : Ayleen [phone] Getting dialysis today Plan discussed with: Patient My Orders Orders - VIRIDIANA ROSS MD Procedure Category Date Status Time Urine Bacterial ADELE 10/06/24 Logged Culture 11:07 Blood Culture ADELE 10/06/24 In Process 11:07 Pharmacy [facility] 10/06/24 In Process Clarification: 11:18 Levetiracetam Inj PHA 10/06/24 In Process (Keppra) 22:00 Straight Cath. ED NURSING 10/06/24 Transmitted Date of Service: Oct 07, 2024 Billing Provider: VIRIDIANA ROSS MD Common Visit Codes: [id number] INP/OBS CARE(HIGH) VIRIDIANA ROSS MD Oct 07, 2024 09:53
[2024-10-07] MEDS: SODIUM CHL 0.9% 1000 ML BAG XX ONE (16:45)
[2024-10-07] MEDS: EPOETIN ALFA-EPBX 10,000 UNIT/1ML VIAL SC ONE (21:00)
[2024-10-07] MEDS: LEVETIRACETAM IV SCH (21:40)
[2024-10-07] MEDS: SODIUM CHL 0.9% IV SCH (21:40)
[2024-10-08] VITALS (8 sets, daily range): BP systolic 149–171; BP diastolic 38–71; PULSE 52–75; RESP 16–99; TEMP 97.6–98.4; O2SAT 92–100
[2024-10-08] MEDS: DEXTROSE (50%) 50ML SYRG IV PRN (04:33)
[2024-10-08] MEDS ORDERED: LEVO500T91 PO (10:36)
--- NOTE | 2024-10-08 10:36 | DVHPN2 ---
Reviewed: Care Plan, H&P, Labs, Medications, Previous Orders, Radiology Changes from previous H/P or p: No Changes Eyes: No Pain, No Vision change, No Conjunctivae inflammation, No Eyelid inflammation, No Other, No Redness ENT: No Ear pain, No Ear discharge, No Nose pain, No Nose discharge, No Nose congestion, No Mouth pain, No Mouth swelling, No Throat pain, No Throat swelling, No Other Respiratory: No Cough, No Dry, No Shortness of breath, No SOB with excertion, No Wheezing, No Hemoptysis, No Pleuritic Pain, No Sputum, No Other Musculoskeletal: other (Left-sided weakness due to prior stroke); No neck pain, No shoulder pain, No arm pain, No back pain, No hand pain, No leg pain, No foot pain Skin: No Rash, No Lesions, No Jaundice, No Bruising, No Other Objective Vitals Vital Signs Date Time Temp Pulse Resp B/P (MAP) Pulse Ox O2 Delivery O2 Flow Rate FiO2 10/08/24 05:27 167/71 10/08/24 05:00 98.1 64 18 100 98.1 10/07/24 20:00 Room Air* 0 21 Intake/Output Intake and Output 10/08/24 07:00 Intake Total 822.5 ml Output Total 0 ml Balance 822.5 ml Intake Oral 720 ml IV Total 102.5 ml Output Urine Total 0 ml Medications Current Medications Medications Dose Ordered Sig/Terrance Route Start Time Stop Time Status Last Admin Dose Admin Ondansetron HCl 4 mg Q4HP PRN IV 10/05/24 14:45 Enoxaparin Sodium 30 mg DAILY SC 10/06/24 10:00 10/07/24 09:44 30 MG Morphine Sulfate 2 mg Q4HPRN PRN IV 10/05/24 14:45 Nitroglycerin 0.4 mg Q5MINP PRN SL 10/05/24 14:45 Vancomycin HCl 0 ml @ 0 mls/hr UD IV 10/05/24 14:45 Piperacillin Sod/ Tazobactam Sod 50 ml @ 12.5 mls/hr Q12HR IV 10/05/24 22:00 10/07/24 21:43 12.5 MLS/HR Lorazepam 1 mg Q6HP PRN IV 10/05/24 14:45 Hydralazine HCl 10 mg Q6HP PRN IV 10/05/24 18:00 10/08/24 05:27 10 MG Levothyroxine Sodium 50 mcg DAILY IV 10/06/24 10:00 10/07/24 09:44 50 MCG Lorazepam 1 mg Q5MINP PRN IV 10/05/24 20:45 Levetiracetam 250 mg/Sodium Chloride 52.5 ml @ 206.107 mls/hr BID IV 10/05/24 22:00 Cancel Phenytoin Sodium 100 mg Q12HR IV 10/06/24 22:00 10/07/24 21:43 100 MG Diagnostic Test (Pha) 1 strip IQ4HR 10/06/24 20:00 10/08/24 07:52 1 STRIP Insulin Human Regular IQ4HR SC 10/06/24 20:00 Dextrose 50 ml UD PRN IV 10/06/24 18:00 10/08/24 04:33 50 ML Levetiracetam 250 mg/Sodium Chloride 52.5 ml @ 210 mls/hr Q12H IV 10/07/24 20:00 10/08/24 08:19 210 MLS/HR Laboratory Results Laboratory Tests 10/06/24 08:11 Microbiology Microbiology Date/Time Source Procedure Growth Status 10/06/24 11:47 Blood Blood Culture - Preliminary Resulted Labs and/or images reviewed: Labs reviewed by me, Image(s) reviewed by me Assessment/Plan Assessment/Plan Breakthrough seizures: Continue home medication phenytoin and Keppra: Neurology consult by Dr. 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 Ortiz group Hypoglycemia Patient noncompliance low levels of seizure medications Possible aspiration pneumonia: Zosyn vancomycin Time spent 65 minutes Patient is full code Advanced care planning time 20 minutes Blood cultures follow up One set positive for Gram-positive cocci 2nd set negative possible contamination : Ayleen [phone] requesting patient to be discharged today Plan discussed with: Patient My Orders Orders - VIRIDIANA ROSS MD Procedure Category Date Status Time Levetiracetam Inj PHA 10/07/24 In Process (Keppra) 20:00 Date of Service: Oct 08, 2024 Billing Provider: VIRIDIANA ROSS MD Common Visit Codes: [id number] INP/OBS CARE(HIGH) VIRIDIANA ROSS MD Oct 08, 2024 10:35
--- NOTE | 2024-10-08 10:40 | DVHDS2 ---
Discharge Summary Date of Admission Oct 05, 2024 at 14:33 Date of Discharge: Oct 08, 2024 Admitting Diagnosis Breakthrough seizures Wounds: None Labs/Diagnostic Data: Laboratory Results Test 10/08/24 09:58 10/08/24 07:40 10/07/24 18:40 10/07/24 09:34 POC Glucose 77 mg/dl (70-106) Phenytoin (Dilantin) Level 8.8 ug/mL (10-20) Test 10/06/24 08:11 10/05/24 10:15 10/05/24 09:21 White Blood Count 3.0 10^3/uL (4.4-10.8) Red Blood Count 3.20 10^6/uL (4.5-5.90) Hemoglobin 11.0 g/dL (13.5-17.5) Hematocrit 32.7 % (41.0-53.0) Mean Corpuscular Volume 102.2 fL (80.0-100.0) Mean Corpuscular Hemoglobin 34.4 pg (28.0-32.0) Mean Corpuscular Hemoglobin Concent 33.7 g/dL (32.0-36.0) Red Cell Distribution Width 17.2 % (11.8-14.3) Platelet Count 140 10^3/uL (140-450) Mean Platelet Volume 7.0 fL (6.9-10.8) Neutrophils (%) (Auto) 63.4 % (37.0-80.0) Lymphocytes (%) (Auto) 19.6 % (10.0-50.0) Monocytes (%) (Auto) 7.5 % (0.0-12.0) Eosinophils (%) (Auto) 8.4 % (0.0-7.0) Basophils (%) (Auto) 1.1 % (0.0-2.0) Neutrophils # (Auto) 1.9 10 ^3/uL (1.6-8.6) Lymphocytes # (Auto) 0.6 10 ^3/uL (0.4-5.4) Monocytes # (Auto) 0.2 10 ^3/uL (0-1.3) Eosinophils # (Auto) 0.3 10 ^3/uL (0-0.8) Basophils # (Auto) 0 10 ^3/uL (0-0.2) Nucleated Red Blood Cells 0.3 % Sodium Level 139 mmol/L (136-145) Potassium Level 4.9 mmol/L (3.5-5.1) Chloride Level 105 mmol/L (98-107) Carbon Dioxide Level 26 mmol/L (20-31) Anion Gap 8 (5-15) Blood Urea Nitrogen 61 mg/dL (9-23) BUN/Creatinine Ratio 9.9 (10.0-20.0) Serum Glucose 52 mg/dL (74-106) Calcium Level 7.9 mg/dL (8.7-10.4) Total Bilirubin < 0.2 mg/dL (0.2-1.0) Aspartate Amino Transferase (AST) 34 U/L (13-40) Alanine Aminotransferase (ALT) 33 U/L (7-40) Alkaline Phosphatase 205 U/L (46-116) Total Protein 5.6 g/dL (5.7-8.2) Albumin 3.1 g/dL (3.2-4.8) Troponin I High Sensitivity 19 ng/L (</=54) Phosphorus Level 4.3 mg/dL (2.4-5.1) Magnesium Level 2.4 mg/dL (1.6-2.6) Plasma/Serum Blood Alcohol < 3.0 mg/dL (<10) Other Laboratory Tests 10/06/24 08:11 Brief Hx & Hospital Course: 59-year-old male with a history of CVA left hemiplegia hypertension hypothyroidism seizures ESRD on hemodialysis brought by the family for breakthrough seizures. Patient was continued on home medication phenytoin and Keppra neurology consult by Dr. Nielsen CT head is negative received hemodialysis patient feels better now possible aspiration pneumonia treated with the Zosyn and vancomycin. At the time of discharge his on room air and alert and awake at the bedside and requesting patient to be discharged today Consults/Reason for consult Neurology Dr. Nielsen Operations or Procedures CT head Condition at Discharge: Fair Final Diagnosis/Problems List Breakthrough seizures: Continue home medication phenytoin and Keppra: Neurology consult by Dr. 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 Ortiz group Hypoglycemia Patient noncompliance low levels of seizure medications Possible aspiration pneumonia: Zosyn vancomycin Discharge Disposition: Home Discharge Instruct/Medications Diet: Cardiac 2g Na,low cholest Activity: Light activity Follow Up/Referral: Continue all Previous home medications including seizure medications and follow up with your primary Dr and Neurologist Medications: Levaqpaloma Transmitted to the pharmacy Reviewed all previous home meds 39 (Time Taken For discharge summary 39 minutes) Discharge Statement: "Patient was advised to return to the ER or call 911 if any headaches, dizziness, shortness of breath, chest pain, abdominal pain, bleeding, fevers, or worsening of medical condition. Patient was counseled about treatment plan, medications, possible side effects, patientverbalized understanding. All questions were answered to the best of my ability. This discharge took greater then 30 minutes in planning, reviewing documentation, counseling the patient, and discussing with other team members." ASSESSMENT ASSESSMENT Hospital Course Improved Assessment Breakthrough seizures: Continue home medication phenytoin and Keppra: Neurology consult by Dr. 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 Ortiz group Hypoglycemia Patient noncompliance low levels of seizure medications Possible aspiration pneumonia: Zosyn vancomycin Date of Service: Oct 08, 2024 Billing Provider: VIRIDIANA ROSS MD Common Visit Codes: 63196-VDF/OBS DISCH DAY >30min VIRIDIANA ROSS MD Oct 08, 2024 10:39
[2024-10-08] MEDS: VANCOMYCIN 750MG KIT 100 ML IV ONE (12:15)
--- NOTE | 2024-10-08 14:13 | DVHINCON2 ---
Date of service: Oct 06, [address] Ross Reason for Consultation ESRD History of Present Illness Mr. 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 Patient's is at the bedside during my evaluation. This is a late entry. He presented for evaluation of altered mentation and hypoglycemia per her report. Current consultation requested due to ongoing management of ESRD. Past Medical History ESRD Diabetes Hypertension Anemia History of CVA Allergies: Coded Allergies: NO KNOWN ALLERGIES (Unverified , 10/05/24) Home Meds Active Scripts Levofloxacin Hemihydrate (LEVAQUIN 500 MG) 500 Mg Tab, 1 TAB PO DAILY, #10 TAB Prov:VIRIDIANA ROSS MD 10/08/24 Reported Medications Paroxetine Hydrochloride (Paroxetine Hydrochloride) 10 Mg Tab, 10 MG PO DAILY, TAB 10/06/24 Phenytoin (Dilantin-125) 125 Mg/5 Ml Cindi, 8 ML PO DAILY@1400 for 29 Days, #237 ML SHAKE LIQUID AND TAKE 8 ML BY MOUTH DAILY AT 2 PM 10/06/24 Omeprazole (Omeprazole Dr) 40 Mg Cap, 40 MG PO DAILY, CAP 10/06/24 Empagliflozin (Jardiance) 25 Mg Tab, 25 MG PO DAILY, TAB 10/06/24 Levothyroxine Sodium (Levothyroxine Sodium) 25 Mcg Tab, 25 MCG PO QAM, TAB TAKE 1 TABLET BY MOUTH DAILY IN THE MORNING ON AN EMPTY STOMACH 10/06/24 Levetiracetam (Levetiracetam) 250 Mg Tab, 250 MG PO BID, TAB 10/06/24 Amlodipine Besylate (Amlodipine Besylate) 10 Mg Tab, 10 MG PO DAILY, TAB 10/06/24 Polynuclear Iron(III)-Oxyhydro (Velphoro) 500 Mg Chw, 500 MG PO TID, TAB.CHEW 10/05/24 Atorvastatin Calcium (ATORVASTATIN CALCIUM) 20 Mg Tab, 1 TAB PO DAILY@DINNER, #30 TAB 5 Refills 10/05/24 Gabapentin (Gabapentin) 100 Mg Cap, 1 CAP PO DAILY@DINNER, #90 CAP 2 Refills 10/05/24 Hydralazine Hcl (Hydralazine Hcl) 100 Mg Tab, 1 TAB PO BID, #90 TAB 5 Refills 10/05/24 Carvedilol (Carvedilol) 12.5 Mg Tab, 1 TAB PO BID, #180 TAB 1 Refill 10/05/24 Aspirin (Aspirin Low Dose) 81 Mg Chw, 1 TAB PO DAILY, #30 TAB 3 Refills 10/05/24 Discontinued Reported Medications Levothyroxine Sodium (SYNTHROID TABLET) 50 Mcg Tb, 1 TAB PO DAILY, #30 TAB 5 Refills 10/05/24 Paroxetine (PAXIL TABLET) 20 Mg Tb, 10 TAB PO DAILY, #30 TAB 5 Refills 10/05/24 Levetiracetam (Keppra) 500 Mg Tab, 250 TAB PO BID, #180 TAB 3 Refills 10/05/24 Amlodipine Besylate (NORVASC TABLET) 5 Mg Tb, 10 TAB PO DAILY, #30 TAB 5 Refills 10/05/24 Current Medications Current Medications Medications (Trade) Dose Ordered Sig/Terrance Route PRN Reason Start Time Stop Time Status Last Admin Levetiracetam 250 mg/Sodium Chloride 52.5 ml @ 210 mls/hr Q12H IV 10/07/24 20:00 10/08/24 08:19 Family History: FH: throat cancer G8 FATHER Review of Systems Unable to be obtained due to patient's mental status H&P Exam Vital Signs/I&O Vital Sign Date Time Temp Pulse Resp B/P (MAP) Pulse Ox O2 Delivery O2 Flow Rate FiO2 10/08/24 12:03 175/66 10/08/24 08:00 66 10/08/24 08:00 16 98 Room Air* 0 21 10/08/24 05:00 98.1 98.1 Intake and Output 10/07/24 10/08/24 19:00 07:00 Intake Total 770 ml 52.5 ml Output Total 0 ml Balance 770 ml 52.5 ml Intake Oral 720 ml 0 ml IV Total 50 ml 52.5 ml Output Urine Total 0 ml Physical Exam gen: nad heent: dry oral mucosae lungs: Cta cvs: no rub abd: soft,nontender ext: no edema skin: no rash neuro: lethargic, but arousable Labs/Diagnostic Data Labs/Diagnostic Data Laboratory Tests Test 10/08/24 11:56 10/08/24 09:58 10/08/24 07:40 10/08/24 05:38 Range/Units POC Glucose 110 H 77 72 70-106 mg/dl Creatinine 5.37 H 0.700-1.30 mg/dL Glomerular Filtration Rate Calc 11 >90 mL/min Random Vancomycin Level 16.6 H 5-10 ug/mL Test 10/08/24 04:14 10/07/24 23:59 10/07/24 20:38 10/07/24 18:40 Range/Units POC Glucose 41 *L 66 L 97 70-106 mg/dl Test 10/07/24 17:34 10/07/24 12:06 10/07/24 09:34 10/07/24 08:58 Range/Units POC Glucose 171 H 127 H 127 H 70-106 mg/dl Phenytoin (Dilantin) Level 8.8 L 10-20 ug/mL Test 10/07/24 06:27 10/07/24 04:08 10/07/24 00:40 10/06/24 20:12 Range/Units Random Vancomycin Level 19.5 H 5-10 ug/mL POC Glucose 177 H 212 H 209 H 70-106 mg/dl Test 10/06/24 17:54 10/06/24 15:58 10/06/24 12:18 10/06/24 09:16 Range/Units POC Glucose 188 H 156 H 88 102 70-106 mg/dl Test 10/06/24 08:11 10/06/24 08:03 10/06/24 08:01 10/06/24 05:10 Range/Units White Blood Count 3.0 L 4.4-10.8 10^3/uL Red Blood Count 3.20 L 4.5-5.90 10^6/uL Hemoglobin 11.0 L 13.5-17.5 g/dL Hematocrit 32.7 L 41.0-53.0 % Mean Corpuscular Volume 102.2 H 80.0-100.0 fL Mean Corpuscular Hemoglobin 34.4 H 28.0-32.0 pg Mean Corpuscular Hemoglobin Concent 33.7 32.0-36.0 g/dL Red Cell Distribution Width 17.2 H 11.8-14.3 % Platelet Count 140 140-450 10^3/uL Mean Platelet Volume 7.0 6.9-10.8 fL Neutrophils (%) (Auto) 63.4 37.0-80.0 % Lymphocytes (%) (Auto) 19.6 10.0-50.0 % Monocytes (%) (Auto) 7.5 0.0-12.0 % Eosinophils (%) (Auto) 8.4 H 0.0-7.0 % Basophils (%) (Auto) 1.1 0.0-2.0 % Neutrophils # (Auto) 1.9 1.6-8.6 10 ^3/uL Lymphocytes # (Auto) 0.6 0.4-5.4 10 ^3/uL Monocytes # (Auto) 0.2 0-1.3 10 ^3/uL Eosinophils # (Auto) 0.3 0-0.8 10 ^3/uL Basophils # (Auto) 0 0-0.2 10 ^3/uL Nucleated Red Blood Cells 0.3 % Sodium Level 139 136-145 mmol/L Potassium Level 4.9 3.5-5.1 mmol/L Chloride Level 105 98-107 mmol/L Carbon Dioxide Level 26 20-31 mmol/L Anion Gap 8 5-15 Blood Urea Nitrogen 61 H 9-23 mg/dL Creatinine 6.17 H 0.700-1.30 mg/dL Glomerular Filtration Rate Calc 10 >90 mL/min BUN/Creatinine Ratio 9.9 L 10.0-20.0 Serum Glucose 52 L 74-106 mg/dL Calcium Level 7.9 L 8.7-10.4 mg/dL Total Bilirubin < 0.2 L 0.2-1.0 mg/dL Aspartate Amino Transferase (AST) 34 13-40 U/L Alanine Aminotransferase (ALT) 33 7-40 U/L Alkaline Phosphatase 205 H 46-116 U/L Total Protein 5.6 L 5.7-8.2 g/dL Albumin 3.1 L 3.2-4.8 g/dL Random Vancomycin Level 17.0 H 5-10 ug/mL Phenytoin (Dilantin) Level < 2.0 L 10-20 ug/mL POC Glucose 51 L 48 *L 77 70-106 mg/dl Test 10/06/24 03:53 10/06/24 02:13 10/05/24 22:02 10/05/24 20:15 Range/Units POC Glucose 103 24 *L 86 40 *L 70-106 mg/dl Test 10/05/24 20:12 10/05/24 19:37 10/05/24 15:45 10/05/24 10:15 Range/Units POC Glucose 41 *L 52 L 133 H 70-106 mg/dl Troponin I High Sensitivity 19 </=54 ng/L Test 10/05/24 09:21 Range/Units White Blood Count 3.3 L 4.4-10.8 10^3/uL Red Blood Count 3.38 L 4.5-5.90 10^6/uL Hemoglobin 11.7 L 13.5-17.5 g/dL Hematocrit 34.7 L 41.0-53.0 % Mean Corpuscular Volume 102.8 H 80.0-100.0 fL Mean Corpuscular Hemoglobin 34.6 H 28.0-32.0 pg Mean Corpuscular Hemoglobin Concent 33.7 32.0-36.0 g/dL Red Cell Distribution Width 17.7 H 11.8-14.3 % Platelet Count 161 140-450 10^3/uL Mean Platelet Volume 7.2 6.9-10.8 fL Neutrophils (%) (Auto) 67.3 37.0-80.0 % Lymphocytes (%) (Auto) 18.6 10.0-50.0 % Monocytes (%) (Auto) 6.2 0.0-12.0 % Eosinophils (%) (Auto) 6.9 0.0-7.0 % Basophils (%) (Auto) 1.0 0.0-2.0 % Neutrophils # (Auto) 2.2 1.6-8.6 10 ^3/uL Lymphocytes # (Auto) 0.6 0.4-5.4 10 ^3/uL Monocytes # (Auto) 0.2 0-1.3 10 ^3/uL Eosinophils # (Auto) 0.2 0-0.8 10 ^3/uL Basophils # (Auto) 0 0-0.2 10 ^3/uL Nucleated Red Blood Cells 0.1 % Sodium Level 140 136-145 mmol/L Potassium Level 5.1 3.5-5.1 mmol/L Chloride Level 105 98-107 mmol/L Carbon Dioxide Level 29 20-31 mmol/L Anion Gap 6 5-15 Blood Urea Nitrogen 54 H 9-23 mg/dL Creatinine 5.64 H 0.700-1.30 mg/dL Glomerular Filtration Rate Calc 11 >90 mL/min BUN/Creatinine Ratio 9.6 L 10.0-20.0 Serum Glucose 76 74-106 mg/dL Calcium Level 8.0 L 8.7-10.4 mg/dL Phosphorus Level 4.3 2.4-5.1 mg/dL Magnesium Level 2.4 1.6-2.6 mg/dL Troponin I High Sensitivity 20 </=54 ng/L Plasma/Serum Blood Alcohol < 3.0 <10 mg/dL Plan/Recommendation IMP: 1) ESRD on dialysis 2) diabetes 3) toxic metabolic encephalopathy 4) anemia REC: - we will continue with thrice weekly hemodialysis inpatient basis. - discussed with patient's regarding Dialysis WednesdayOctober 06. She expressed understanding regarding plan of care. Plan discussed with: Spouse CHAPARRO SERVIN MD Oct 08, 2024 14:13
[2024-10-08] MEDS: cloNIDine HCL 0.1 MG TAB PO ONE (14:54)
[2024-10-08] MEDS: DEXTROSE 10% 1,000 ML IV ONE (17:15)
--- NOTE | 2024-10-08 17:32 | BSKYNEURO ---
[place] [facility] Note # Demographics Consult Type: Acute Stroke Level 2 (4.5-24 hrs) Patient Location: Inpatient First Name: Vincent Last Name: Vance Date of : 1965 Age: 59 Gender: Male Facility: [facility] Time of Initial Page (): 10/08/2024, 17:15 Time of Return Call (): 10/08/2024, 17:15 # HPI Chief Complaint: - altered mental state - confusion History: 59yom with previous stroke (2020, L sided weakness), seizure who was admitted for breakthrough seizure and concern for aspiration, AMS. Code stroke called as pt is having worsened AMS and bleeding in his eye and L facial droop. SBP 160s. Unclear LKW, possibly sometime this AM when eating breakfast Last Known Normal: - I have collected independent history specific to time last normal or last known well. We have collaborated with the provider and at this time, we have the most current timeline with the information that is available. This AM when eating breakfast, >4.5 hours ago # Scores Time of exam and NIHSS (): 10/08/2024, 17:19 Level of Consciousness 1a: [0] = Alert; keenly responsive LOC Questions 1b: [2] = Answers neither correctly LOC Commands 1c: [2] = Performs neither correctly Best Gaze 2: [0] = Normal Visual 3: [0] = No visual loss Facial Palsy 4: [0] = Normal symmetrical movements Motor Arm Left 5a: [4] = No movement Motor Arm Right 5b: [4] = No movement Motor Leg Left 6a: [4] = No movement Motor Leg Right 6b: [4] = No movement Limb Ataxia 7: [0] = Absent Sensory 8: [0] = Normal Best Language 9: [3] = Mute Dysarthria 10: [0] = Normal Extinction and Inattention 11: [0] = No abnormality NIHSS Total: 23 # Plan Thrombolytic/Intervention: Possible IA candidate Thrombolytic Exclusion: > 4.5 hours Possible IA Candidate: - CTA pending Imaging: (urgency: STAT): - CT Angiogram Head and CT Angiogram Neck AND call back with results if abnormal CTs currently pending Imaging: (urgency: routine): - MRI Brain without contrast Diagnostic Test: - EEG Other: - If patient has any neurological deterioration please call me back immediately # Logistics Attestation of consult completion: The patient is located at: [facility]. Facility staff participated in the visit. I performed this telemedicine visit from my offsite office utilizing interactive 2 way audio and visual telecommunication technology. Total time spent in telemedicine encounter: I spent 26 minutes reviewing clinical data and/or imaging, obtaining history, examining the patient, communicating with the onsite care team, and in preparation of this report. # Demographics First Name: Vincent Last Name: Vance Facility: [facility] Yes PRAVEEN FRAZIER MD Oct 08, 2024 17:32
[2024-10-08] MEDS: IOHEXOL 350 MG/ML 100ML IJ ONE (17:34)
[2024-10-08 18:00] LABS: Basophils # (auto) 0 10 ^3/uL (0-0.2); Basophils % (auto) 0.9 % (0.0-2.0); Eosinophils # (auto) 0.3 10 ^3/uL (0-0.8); Eosinophils % (auto) 5.5 % (0.0-7.0); Hematocrit 29.3 % (41.0-53.0); Hemoglobin 9.8 g/dL (13.5-17.5); Lymphocytes # (auto) 0.6 10 ^3/uL (0.4-5.4); Lymphocytes % (auto) 12.2 % (10.0-50.0); Mean Corpuscular Hemoglobin 33.9 pg (28.0-32.0); Mean Corpuscular Hgb Conc. 33.5 g/dL (32.0-36.0); Mean Corpuscular Volume 101.1 fL (80.0-100.0); Monocytes # (auto) 0.4 10 ^3/uL (0-1.3); Monocytes % (auto) 8.4 % (0.0-12.0); Neutrophils # (auto) 3.6 10 ^3/uL (1.6-8.6); Nucleated Red Blood Cells % 0.1 %; Platelet Count (auto) 129 10^3/uL (140-450); Red Cell Distribution Width 17.3 % (11.8-14.3)
[2024-10-08 18:11] LABS: Alanine Aminotransferase 27 U/L (7-40); Anion Gap 7 (5-15); Aspartate Aminotransferase 16 U/L (13-40); BUN/Creatinine Ratio 9.1 (10.0-20.0); Carbon Dioxide 30 mmol/L (20-31); Chloride 101 mmol/L (98-107); Glucose 93 mg/dL (74-106); Potassium 4.5 mmol/L (3.5-5.1); Sodium 138 mmol/L (136-145)
[2024-10-08] MEDS: DEXTROSE (50%) 50ML SYRG IV ONE (18:14)
[2024-10-08] MEDS: D5W 5% 1,000 ML IV SCH (18:15)
[2024-10-08 18:17] LABS: INR 1.18 (0.9-1.15); Partial Thromboplastin Time 39.3 SEC (24.5-34.5); Prothrombin Time 12.4 sec (9.3-11.8)
[2024-10-08 18:20] LABS: Albumin 2.8 g/dL (3.2-4.8); Alkaline Phosphatase 189 U/L (46-116); Bilirubin, Total 0.2 mg/dL (0.2-1.0); Blood Urea Nitrogen 52 mg/dL (9-23); Calcium 7.6 mg/dL (8.7-10.4)
--- NOTE | 2024-10-08 18:25 | DVH ---
Procedure: CT STROKE [facility] Study Date and Requested Time: 10/08/2024 05:43 PM History: Stroke Comparison: CT HEAD WITHOUT CONTRAST on DOS: 10/05/24 Dose: CTDI: 63.84 mGy DLP: 1130.12 mGycm Technique: Multiplanar images obtained through the brain without intravenous contrast. Findings: Severe diffuse brain atrophy. Moderate to severe chronic small-vessel ischemic changes with focal are as of right frontal lobe and anterior left external capsule hypodensities. No hemorrhages, masses, mass effect, midline shift, herniation or cytotoxic edema following a large v ascular territory. No intra-axial or extra-axial fluid collections. No evidence of hydrocephalus. The basal cisterns are patent. The pituitary gland, sella and parasellar regions are unremarkable. The cerebellar tonsils are in nor mal position. The cerebellum is unremarkable. The orbits and globes are unremarkable. The paranasal sinuses and mastoids are clear. There are no wo rrisome calvarial lesions. Impression: No evidence of acute intracranial abnormality. Unchanged hypodensities over the right frontal lobe ritchie radiata and anterior left external capsule which may represent areas of infarct of unknown chronicity ; likely chronic. MRI would be helpful f or further evaluation.
--- NOTE | 2024-10-08 23:09 | DVH ---
INDICATION: r/o stroke COMPARISON: None TECHNIQUE: CTA head with intravenous contrast. CTA neck with intravenous contrast. 3D image postpr ocessing was performed on a dedicated workstation and images were used for interpretation and reporti ng. Radiation Dose Information: CT Dose: CTDI volume is 22.45 mGy. Dose-length product is 790.43 mGy*cm FINDINGS: CTA head: There is normal enhancement of the visualized distal internal carotid, anterior and middle cerebral a rteries. There is a normal anterior communicating artery complex. There are bilateral posterior com municating arteries. The vertebral, basilar, cerebellar and posterior cerebral arteries are within n ormal limits. The early parenchymal enhancement is grossly unremarkable. The visualized intracrania l venous structures are grossly unremarkable. CTA neck: The visualized thoracic aortic arch and proximal great vessels are unremarkable. The left common, internal and external carotid arteries are within normal limits. The right common, internal and external carotid arteries are within normal limits. The cervical segments of the right and left vertebral arteries are within normal limits. The limited visualized lung apices are clear. The surrounding soft tissues and osseous structures ar e otherwise unremarkable. IMPRESSION: 1. No evidence of hemodynamically significant intracranial stenosis, proximal occlusion or aneurysm. 2. No evidence of hemodynamically significant cervical stenosis or dissection. All CT scans at this medical facility are performed using dose modulation techniques as appropriate t o a performed exam including the following: Automated exposure control was utilized; adjustment of th e MA and/or KV according to patient size; and use of iterative reconstruction technique.
[2024-10-09] VITALS (9 sets, daily range): BP systolic 142–167; BP diastolic 37–51; PULSE 54–61; RESP 16–18; TEMP 97.2–98; O2SAT 98–100
[2024-10-09 06:50] LABS: Chloride 101 mmol/L (98-107)
[2024-10-09 06:51] LABS: Anion Gap 11 (5-15); Carbon Dioxide 21 mmol/L (20-31)
[2024-10-09 06:54] LABS: Calcium 7.1 mg/dL (8.7-10.4); Sodium 133 mmol/L (136-145)
[2024-10-09 07:00] LABS: BUN/Creatinine Ratio 6.8 (10.0-20.0); Blood Urea Nitrogen 42 mg/dL (9-23); Glucose 110 mg/dL (74-106)
[2024-10-09 07:03] LABS: Potassium 5.6 mmol/L (3.5-5.1)
[2024-10-09 09:10] LABS: Hepatitis A Ab IgM Negative; Hepatitis B Core IgM Negative (Negative); Hepatitis B Surface Antigen Negative (Negative); Hepatitis C Antibody Negative (Negative)
[2024-10-09] MEDS ORDERED: MORPHINE SULFATE INJ 2 MG/ml SYRG IV PRN (12:00)
--- NOTE | 2024-10-09 12:03 | DVHPN2 ---
Progress Note Date Seen: Oct 09, 2024 Medical Necessity Reason Pt with a Central, PICC or Fol: No Subjective Patient reports: No new complaints Review of Systems: HEENT:Normal, CVS:Normal, RESPIRATORY:Normal, GI:Normal, :Normal, MSK:Normal, NEURO:Normal Objective vital signs Vital Sign Date Time Temp Pulse Resp B/P (MAP) Pulse Ox O2 Delivery O2 Flow Rate FiO2 10/09/24 09:00 98.0 60 16 148/51 (83) 100 98.0 10/08/24 20:00 Room Air* 0 21 Total Intake and Output 10/08/24 10/08/24 10/09/24 15:00 23:00 07:00 Intake Total 102.5 ml 70 ml 130 ml Balance 102.5 ml 70 ml 130 ml medications Current Medications Medications Dose Ordered Sig/Terrance Route Start Time Stop Time Status Last Admin Dose Admin Ondansetron HCl 4 mg Q4HP PRN IV 10/05/24 14:45 Enoxaparin Sodium 30 mg DAILY SC 10/06/24 10:00 10/09/24 09:55 30 MG Morphine Sulfate 2 mg Q4HPRN PRN IV 10/05/24 14:45 Nitroglycerin 0.4 mg Q5MINP PRN SL 10/05/24 14:45 Vancomycin HCl 0 ml @ 0 mls/hr UD IV 10/05/24 14:45 Piperacillin Sod/ Tazobactam Sod 50 ml @ 12.5 mls/hr Q12HR IV 10/05/24 22:00 10/09/24 09:55 12.5 MLS/HR Lorazepam 1 mg Q6HP PRN IV 10/05/24 14:45 Hydralazine HCl 10 mg Q6HP PRN IV 10/05/24 18:00 10/08/24 12:03 10 MG Levothyroxine Sodium 50 mcg DAILY IV 10/06/24 10:00 10/09/24 09:54 50 MCG Lorazepam 1 mg Q5MINP PRN IV 10/05/24 20:45 Levetiracetam 250 mg/Sodium Chloride 52.5 ml @ 206.107 mls/hr BID IV 10/05/24 22:00 Cancel Phenytoin Sodium 100 mg Q12HR IV 10/06/24 22:00 10/09/24 09:54 100 MG Diagnostic Test (Pha) 1 strip IQ4HR 10/06/24 20:00 10/09/24 08:00 1 STRIP Insulin Human Regular IQ4HR SC 10/06/24 20:00 Dextrose 50 ml UD PRN IV 10/06/24 18:00 10/09/24 10:55 50 ML Levetiracetam 250 mg/Sodium Chloride 52.5 ml @ 210 mls/hr Q12H IV 10/07/24 20:00 10/09/24 10:37 210 MLS/HR Dextrose 1,000 ml @ 60 mls/hr [id number] IV 10/09/24 11:00 Examination: GENERAL:Normal, HEENT:Normal, NECK:Normal, LUNGS:Normal, CVS:Normal, ABDOMEN:Normal, MSK:Normal, SKIN:Normal, NEURO:Normal, NEURO:Abnormal (encephalopathy, left hemiplegia), :Normal laboratory and microbiology Laboratory Tests 10/09/24 05:46 10/08/24 17:48 Test 10/09/24 05:46 Range/Units Serum Glucose 110 H 74-106 mg/dL Microbiology Date/Time Source Procedure Growth Status 10/06/24 11:47 Blood Blood Culture - Preliminary Resulted Problem List/Assessment/Plan Problem List/Assessment/Plan #1 encephalopathy ? metabolic/hypoglycemia: d10, acu checks #2 esrd: dialysis today #3 hyperkalemia #4 htn #5 breakthrough seizure; cont meds #6 aspiration pneumonia: chest xray, iv antibiotics advance care planning- full code- time spent 19mins Plan discussed with: Patient, Spouse My Orders My Orders Orders - IGGY RAMIREZ MD Procedure Category Date Status Time Dextrose 10% PHA 10/09/24 In Process 11:00 Dietary Evaluation Review Comments: encourage and monitor PO intakes to meet 75% of his needs Expected Outcomes/Goals: Improved nutrition related labe values Date of Service: Oct 09, 2024 Billing Provider: IGGY RAMIREZ MD Common Visit Codes: [id number] INP/OBS CARE(HIGH) Secondary Visit Codes: [id number] CARE PLAN 30 MINUTES IGGY RAMIREZ MD Oct 09, 2024 12:02
[2024-10-09] MEDS: DEXTROSE 10% 1,000 ML IV SCH (12:57)
[2024-10-09] MEDS: SODIUM ZIRCONIUM CYCL 10 GM PAK PO SCH (13:15)
[2024-10-09] MEDS: SODIUM BICARB 8.4% 50Meq/50ml SYR Vial IV ONE (13:15)
--- NOTE | 2024-10-09 13:17 | DVH ---
EXAM: XY CHEST PORTABLE Indication: pneumonia Technique: Single frontal view of the chest was obtained Comparison: XY CHEST PORTABLE on DOS: 10/05/24 FINDINGS: Lines and Tubes: None Lungs: Multifocal right lung consolidative opacities. Pleura: Small to moderate right pleural effusion. No pneumothorax. Cardiomediastinal contours: Cardiomegaly. Bones: No acute osseous abnormality. IMPRESSION: Small to moderate right pleural effusion.
[2024-10-09] MEDS: ALBUTEROL SULF 2.5 MG/0.5ML(0.5%) NEB SOLN NEB ONE (14:38)
--- NOTE | 2024-10-09 15:06 | DVHPN2 ---
Progress Note Date Seen: Oct 09, 2024 Medical Necessity Reason Pt with a Central, PICC or Fol: No Subjective Patient reports: Other Changes from previous H/P or p: Changes (AMS) Objective vital signs Vital Sign Date Time Temp Pulse Resp B/P (MAP) Pulse Ox O2 Delivery O2 Flow Rate FiO2 10/09/24 14:48 55 16 100 10/09/24 14:38 Nasal Cannula* 2 28 10/09/24 09:00 98.0 148/51 (83) 98.0 Total Intake and Output 10/08/24 10/08/24 10/09/24 15:00 23:00 07:00 Intake Total 102.5 ml 70 ml 130 ml Balance 102.5 ml 70 ml 130 ml medications Current Medications Medications Dose Ordered Sig/Terrance Route Start Time Stop Time Status Last Admin Dose Admin Ondansetron HCl 4 mg Q4HP PRN IV 10/05/24 14:45 Enoxaparin Sodium 30 mg DAILY SC 10/06/24 10:00 10/09/24 09:55 30 MG Nitroglycerin 0.4 mg Q5MINP PRN SL 10/05/24 14:45 Vancomycin HCl 0 ml @ 0 mls/hr UD IV 10/05/24 14:45 Piperacillin Sod/ Tazobactam Sod 50 ml @ 12.5 mls/hr Q12HR IV 10/05/24 22:00 10/09/24 09:55 12.5 MLS/HR Hydralazine HCl 10 mg Q6HP PRN IV 10/05/24 18:00 10/08/24 12:03 10 MG Levothyroxine Sodium 50 mcg DAILY IV 10/06/24 10:00 10/09/24 09:54 50 MCG Lorazepam 1 mg Q5MINP PRN IV 10/05/24 20:45 Levetiracetam 250 mg/Sodium Chloride 52.5 ml @ 206.107 mls/hr BID IV 10/05/24 22:00 Cancel Phenytoin Sodium 100 mg Q12HR IV 10/06/24 22:00 10/09/24 09:54 100 MG Diagnostic Test (Pha) 1 strip IQ4HR 10/06/24 20:00 10/09/24 12:00 1 STRIP Insulin Human Regular IQ4HR SC 10/06/24 20:00 Dextrose 50 ml UD PRN IV 10/06/24 18:00 10/09/24 10:55 50 ML Levetiracetam 250 mg/Sodium Chloride 52.5 ml @ 210 mls/hr Q12H IV 10/07/24 20:00 10/09/24 12:31 210 MLS/HR Dextrose 1,000 ml @ 60 mls/hr [id number] IV 10/09/24 11:00 10/09/24 12:57 60 MLS/HR Morphine Sulfate 1 mg Q4HPRN PRN IV 10/09/24 12:00 Zirconium Oxide 10 gm TID PO 10/09/24 13:15 10/09/24 22:01 Examination: GENERAL:Abnormal, CVS:Normal (AVF), MSK:Abnormal (contracted), NEURO:Abnormal laboratory and microbiology Laboratory Tests 10/09/24 05:46 10/08/24 17:48 Test 10/09/24 05:46 Range/Units Serum Glucose 110 H 74-106 mg/dL Microbiology Date/Time Source Procedure Growth Status 10/06/24 11:47 Blood Blood Culture - Preliminary Resulted Problem List/Assessment/Plan Problem List/Assessment/Plan End-stage renal disease on hemodialysis Hypoglycemia Altered mental status Possible seizure? Hyperkalemia Medical treatment for elevated potassium level Currently on D10 drip recommend monitor patient's serum sodium and sugar levels Hemodialysis treatment will be scheduled Wednesday Avoid hypotension Recommend neurology workup considering EEG Plan discussed with: Spouse My Orders My Orders Orders - SANDY THOMAS MD Procedure Category Date Status Time Sodium Zirconium PHA 10/09/24 In Process Cyclosilicate 13:15 Hemodialysis Orders ORDERS 10/10/24 Transmitted 04:00 Dietary Evaluation Review Comments: encourage and monitor PO intakes to meet 75% of his needs Expected Outcomes/Goals: Improved nutrition related labe values SANDY THOMAS MD Oct 09, 2024 15:06
[2024-10-09 17:24] LABS: Chloride 99 mmol/L (98-107); Potassium 4.6 mmol/L (3.5-5.1)
[2024-10-09 17:25] LABS: Anion Gap 9 (5-15); Carbon Dioxide 27 mmol/L (20-31)
[2024-10-09 17:30] LABS: BUN/Creatinine Ratio 8.7 (10.0-20.0)
[2024-10-09 17:34] LABS: Blood Urea Nitrogen 56 mg/dL (9-23); Calcium 7.4 mg/dL (8.7-10.4); Glucose 158 mg/dL (74-106); Sodium 135 mmol/L (136-145)
--- NOTE | 2024-10-09 19:12 | DVHPN2 ---
Progress Note - Dictate Date Seen: Oct 09, 2024 Medical Necessity Reason Pt with a Central, PICC or Fol: No Subjective Mr. Fowler is a 59 years old gentleman with a history of hypertension, diabetes, dyslipidemia, end-stage renal failure on hemodialysis, stroke with residual left-sided hemiplegia, depression, seizure disorder, he came to the [facility] on 10/01/24 for ALOC I saw him on 04/08/2022, 07/09/22 for seizure (MR #:[id number]) I have seen and examined the patient, discussed with his nurse. His in the room, I have not see operative changes over time, he laid in the bed, is responsive to touch stimuli, he tracks if his eyes are open. No vocalize claimed the patient enjoys playing in the [employer], and he usually wan money Blood culture, 10/06/24: Gram-positive cocci in clusters Blood culture 10/08/2024: Hepatitis panel, 10/07/2024: Negative Plasma alcohol, 10/05/2024: <3 Dilantin, 10/06/2024: <2, Dilantin: 10/07/2024: 8.8 WBC/HB/PLT/MCV, 10/05/2024: 3.3/11.7/161/102.8 BUN/CR, 10/05/2024: 54/5.64, 10/26/2024: 56/6.44 Chest x-ray, 10/05/2024: Bibasilar opacities with small bilateral effusions. Aspiration pneumonia not excluded CT head, 07/09/2022: 1. No acute intracranial hemorrhage. 2. Old infarcts at the centrum semiovales extending into the basal ganglias, right greater left. 2. Mild generalized volume loss in the background of scattered chronic ischemic small vessel disease changes. MRI can be considered for further evaluation if symptoms persist or continued clinical concern. CT head, 10/05/2024: 1. No CT evidence of acute intracranial abnormality. 2. Nonacute findings as described above CT head, 10/08/24: No evidence of acute intracranial abnormality CTA neck, 04/29/2022: No evidence of a dissection, aneurysm, or stenosis CTA head, neck, 10/08/2024: 1. No evidence of hemodynamically significant intracranial stenosis, proximal occlusion or aneurysm. 2. No evidence of hemodynamically significant cervical stenosis or dissection MRI head, 04/08/2022: There is large chronic right basal ganglion, right insular cortex region right operculum hemorrhagic infarct with associated encephalomalacia. There is associated wallerian degeneration. There is moderate chronic microvascular ischemic disease of supratentorial white matter. There is no acute infarct. There is no acute hemorrhage vital signs Vital Sign Date Time Temp Pulse Resp B/P (MAP) Pulse Ox O2 Delivery O2 Flow Rate FiO2 10/09/24 17:00 97.4 60 16 142/41 (74) 100 97.4 10/09/24 14:38 Nasal Cannula* 2 28 Total Intake and Output 10/08/24 10/08/24 10/09/24 15:00 23:00 07:00 Intake Total 102.5 ml 70 ml 130 ml Balance 102.5 ml 70 ml 130 ml medications Current Medications Medications Dose Ordered Sig/Terrance Route Start Time Stop Time Status Last Admin Dose Admin Ondansetron HCl 4 mg Q4HP PRN IV 10/05/24 14:45 Enoxaparin Sodium 30 mg DAILY SC 10/06/24 10:00 10/09/24 09:55 30 MG Nitroglycerin 0.4 mg Q5MINP PRN SL 10/05/24 14:45 Vancomycin HCl 0 ml @ 0 mls/hr UD IV 10/05/24 14:45 Piperacillin Sod/ Tazobactam Sod 50 ml @ 12.5 mls/hr Q12HR IV 10/05/24 22:00 10/09/24 09:55 12.5 MLS/HR Hydralazine HCl 10 mg Q6HP PRN IV 10/05/24 18:00 10/08/24 12:03 10 MG Levothyroxine Sodium 50 mcg DAILY IV 10/06/24 10:00 10/09/24 09:54 50 MCG Lorazepam 1 mg Q5MINP PRN IV 10/05/24 20:45 Levetiracetam 250 mg/Sodium Chloride 52.5 ml @ 206.107 mls/hr BID IV 10/05/24 22:00 Cancel Phenytoin Sodium 100 mg Q12HR IV 10/06/24 22:00 10/09/24 09:54 100 MG Diagnostic Test (Pha) 1 strip IQ4HR 10/06/24 20:00 10/09/24 16:00 1 STRIP Insulin Human Regular IQ4HR SC 10/06/24 20:00 Dextrose 50 ml UD PRN IV 10/06/24 18:00 10/09/24 10:55 50 ML Levetiracetam 250 mg/Sodium Chloride 52.5 ml @ 210 mls/hr Q12H IV 10/07/24 20:00 10/09/24 12:31 210 MLS/HR Dextrose 1,000 ml @ 60 mls/hr [id number] IV 10/09/24 11:00 10/09/24 12:57 60 MLS/HR Morphine Sulfate 1 mg Q4HPRN PRN IV 10/09/24 12:00 Zirconium Oxide 10 gm TID PO 10/09/24 13:15 10/09/24 22:01 objective General: the patient is well developed and nourished. No acute distress. Left upper extremity spasticity MENTAL STATUS: Subjective SPEECH, LANGUAGE, HIGHER CORTICAL FUNCTION: Subjective CRANIAL NERVES: Pupils are equal, round and reactive. EOMs full and conjugate. Mild bilateral gaze evoked nystagmus. Facial sensation intact in all three divisions bilaterally. Mandibular strength intact. Facial muscles symmetrical and strength intact. SENSATION: Sensation to touch and pinprick is okay. MOTOR: Diminished tone in the left lower extremity. Atrophy in the left extremities. No fasciculations. He moves the right arm and leg, no movement in the left extremities REFLEXES: Deep tendon reflexes are symmetrical. No pathological reflexes. 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 Cognitive dysfunction secondary to stroke, not confirmed with his Aspiration, pneumonia Sepsis Microcytic anemia Assessment/Plan Monitoring Supportive treatment Vitamin B12, folic acid, TSH Dilantin level Follow-up labs EEG IV antibiotics Dilantin 100mg IV Bid Keppra 250mg IV Bid Ativan for seizure breakthrough Aspirin 81 mg Daily Lipitor 20 mg daily DVT prophylaxis Further address his spasticity as outpatient More recommendation per clinical course This medical document was created using an electronic medical record system with [employer] dictation system. Although this document has been carefully reviewed, there may still be some phonetic and typographical errors. These areas are purely typographical due to imperfections of the software programs, and do not reflect any compromise in the patient's medical care. Prognosis poor Dietary Evaluation Review Comments: encourage and monitor PO intakes to meet 75% of his needs Expected Outcomes/Goals: Improved nutrition related labe values Plan discussed with: Spouse, Other ROXANN MARINELLI MD Oct 09, 2024 19:12
[2024-10-09] MEDS: VANCOMYCIN 750MG KIT 100 ML IV ONE (21:08)
[2024-10-10] VITALS (9 sets, daily range): BP systolic 143–159; BP diastolic 31–63; PULSE 51–62; RESP 17–19; TEMP 97.2–98; O2SAT 98–100
[2024-10-10 06:26] LABS: Basophils # (auto) 0 10 ^3/uL (0-0.2); Eosinophils # (auto) 0.3 10 ^3/uL (0-0.8); Lymphocytes # (auto) 0.5 10 ^3/uL (0.4-5.4); Monocytes # (auto) 0.3 10 ^3/uL (0-1.3); Neutrophils # (auto) 2.5 10 ^3/uL (1.6-8.6); Platelet Count (auto) 96 10^3/uL (140-450); Red Cell Distribution Width 16.3 % (11.8-14.3); White Blood Cell 3.6 10^3/uL (4.4-10.8)
[2024-10-10 06:29] LABS: Hematocrit 26.3 % (41.0-53.0); Lymphocytes % (auto) 13.8 % (10.0-50.0); Mean Corpuscular Hemoglobin 34.7 pg (28.0-32.0); Mean Corpuscular Volume 101.9 fL (80.0-100.0); Monocytes % (auto) 7.7 % (0.0-12.0); Neutrophils % (auto) 69.5 % (37.0-80.0); Nucleated Red Blood Cells % 0.1 %; Red Blood Cells 2.58 10^6/uL (4.5-5.90)
--- NOTE | 2024-10-10 10:35 | DVHPN2 ---
Progress Note Date Seen: Oct 10, 2024 Medical Necessity Reason Pt with a Central, PICC or Fol: No Subjective Patient reports: No new complaints Objective vital signs Vital Sign Date Time Temp Pulse Resp B/P (MAP) Pulse Ox O2 Delivery O2 Flow Rate FiO2 10/10/24 05:00 97.5 53 19 150/58 (88) 100 97.5 10/09/24 20:00 Nasal Cannula* 2 28 Total Intake and Output 10/09/24 10/09/24 10/10/24 15:00 23:00 07:00 Intake Total 0 ml 5 ml 100 ml Output Total 0 ml 0 ml Balance 0 ml 5 ml 100 ml medications Current Medications Medications Dose Ordered Sig/Terrance Route Start Time Stop Time Status Last Admin Dose Admin Ondansetron HCl 4 mg Q4HP PRN IV 10/05/24 14:45 Enoxaparin Sodium 30 mg DAILY SC 10/06/24 10:00 10/09/24 09:55 30 MG Nitroglycerin 0.4 mg Q5MINP PRN SL 10/05/24 14:45 Vancomycin HCl 0 ml @ 0 mls/hr UD IV 10/05/24 14:45 Piperacillin Sod/ Tazobactam Sod 50 ml @ 12.5 mls/hr Q12HR IV 10/05/24 22:00 10/09/24 22:52 12.5 MLS/HR Hydralazine HCl 10 mg Q6HP PRN IV 10/05/24 18:00 10/08/24 12:03 10 MG Levothyroxine Sodium 50 mcg DAILY IV 10/06/24 10:00 10/10/24 10:08 50 MCG Lorazepam 1 mg Q5MINP PRN IV 10/05/24 20:45 Levetiracetam 250 mg/Sodium Chloride 52.5 ml @ 206.107 mls/hr BID IV 10/05/24 22:00 Cancel Phenytoin Sodium 100 mg Q12HR IV 10/06/24 22:00 10/10/24 10:08 100 MG Diagnostic Test (Pha) 1 strip IQ4HR 10/06/24 20:00 10/10/24 10:09 1 STRIP Insulin Human Regular IQ4HR SC 10/06/24 20:00 Dextrose 50 ml UD PRN IV 10/06/24 18:00 10/09/24 10:55 50 ML Levetiracetam 250 mg/Sodium Chloride 52.5 ml @ 210 mls/hr Q12H IV 10/07/24 20:00 10/10/24 10:09 210 MLS/HR Dextrose 1,000 ml @ 60 mls/hr [id number] IV 10/09/24 11:00 10/09/24 12:57 60 MLS/HR Morphine Sulfate 1 mg Q4HPRN PRN IV 10/09/24 12:00 Examination: GENERAL:Abnormal, MSK:Abnormal, NEURO:Abnormal laboratory and microbiology Laboratory Tests 10/10/24 05:02 Test 10/10/24 05:02 Range/Units Serum Glucose 172 H 74-106 mg/dL Microbiology Date/Time Source Procedure Growth Status 10/08/24 19:27 Blood Blood Culture - Preliminary NO GROWTH AFTER 24 HOURS OF INCUBATION. Resulted Problem List/Assessment/Plan Problem List/Assessment/Plan End-stage renal disease on hemodialysis Hypoglycemia Altered mental status Possible seizure? hx CVA Hyperkalemia Currently on D10 drip recommend monitor patient's serum sodium and sugar levels Hemodialysis treatment will be scheduled Wednesday Avoid hypotension neurology consulted Plan discussed with: Spouse My Orders My Orders Orders - SANDY THOMAS MD Procedure Category Date Status Time Hemodialysis Orders ORDERS 10/10/24 Transmitted 04:00 Dietary Evaluation Review Comments: encourage and monitor PO intakes to meet 75% of his needs Expected Outcomes/Goals: Improved nutrition related labe values SANDY THOMAS MD Oct 10, 2024 10:35
--- NOTE | 2024-10-10 11:28 | DVHPN2 ---
Progress Note Date Seen: Oct 10, 2024 Medical Necessity Reason Pt with a Central, PICC or Fol: No Subjective Patient reports: No new complaints Review of Systems: HEENT:Normal, CVS:Normal, RESPIRATORY:Normal, GI:Normal, :Normal, MSK:Normal, NEURO:Normal Objective vital signs Vital Sign Date Time Temp Pulse Resp B/P (MAP) Pulse Ox O2 Delivery O2 Flow Rate FiO2 10/10/24 05:00 97.5 53 19 150/58 (88) 100 97.5 10/09/24 20:00 Nasal Cannula* 2 28 Total Intake and Output 10/09/24 10/09/24 10/10/24 15:00 23:00 07:00 Intake Total 0 ml 5 ml 100 ml Output Total 0 ml 0 ml Balance 0 ml 5 ml 100 ml medications Current Medications Medications Dose Ordered Sig/Terrance Route Start Time Stop Time Status Last Admin Dose Admin Ondansetron HCl 4 mg Q4HP PRN IV 10/05/24 14:45 Nitroglycerin 0.4 mg Q5MINP PRN SL 10/05/24 14:45 Vancomycin HCl 0 ml @ 0 mls/hr UD IV 10/05/24 14:45 Piperacillin Sod/ Tazobactam Sod 50 ml @ 12.5 mls/hr Q12HR IV 10/05/24 22:00 10/09/24 22:52 12.5 MLS/HR Hydralazine HCl 10 mg Q6HP PRN IV 10/05/24 18:00 10/08/24 12:03 10 MG Levothyroxine Sodium 50 mcg DAILY IV 10/06/24 10:00 10/10/24 10:08 50 MCG Lorazepam 1 mg Q5MINP PRN IV 10/05/24 20:45 Levetiracetam 250 mg/Sodium Chloride 52.5 ml @ 206.107 mls/hr BID IV 10/05/24 22:00 Cancel Phenytoin Sodium 100 mg Q12HR IV 10/06/24 22:00 10/10/24 10:08 100 MG Diagnostic Test (Pha) 1 strip IQ4HR 10/06/24 20:00 10/10/24 10:09 1 STRIP Insulin Human Regular IQ4HR SC 10/06/24 20:00 Dextrose 50 ml UD PRN IV 10/06/24 18:00 10/09/24 10:55 50 ML Levetiracetam 250 mg/Sodium Chloride 52.5 ml @ 210 mls/hr Q12H IV 10/07/24 20:00 10/10/24 10:09 210 MLS/HR Dextrose 1,000 ml @ 60 mls/hr [id number] IV 10/09/24 11:00 10/09/24 12:57 60 MLS/HR Morphine Sulfate 1 mg Q4HPRN PRN IV 10/09/24 12:00 Examination: GENERAL:Normal, HEENT:Normal, NECK:Normal, LUNGS:Normal, CVS:Normal, ABDOMEN:Normal, MSK:Normal, SKIN:Normal, NEURO:Normal, NEURO:Abnormal (left hemiplegia), :Normal laboratory and microbiology Laboratory Tests 10/10/24 05:02 Test 10/10/24 05:02 Range/Units Serum Glucose 172 H 74-106 mg/dL Microbiology Date/Time Source Procedure Growth Status 10/08/24 19:27 Blood Blood Culture - Preliminary NO GROWTH AFTER 24 HOURS OF INCUBATION. Resulted Problem List/Assessment/Plan Problem List/Assessment/Plan #1 encephalopathy ? metabolic/hypoglycemia: dc d10, acu checks #2 esrd: dialysis today #3 hyperkalemia #4 htn #5 breakthrough seizure; cont meds #6 aspiration pneumonia: chest xray, iv antibiotics #7 cva with left hemiplegia/aphasia #8 thrombocytopenia: dc lovenox, monitor #9 dm: acu checks #10 hyperlipidemia advance care planning- full code- time spent 19mins Plan discussed with: Patient, Spouse My Orders My Orders Orders - IGGY RAMIREZ MD Procedure Category Date Status Time Morphine Sulfate PHA 10/09/24 In Process Injection 12:00 Chest Portable XY 10/09/24 Resulted 11:57 Dietary Evaluation Review Comments: encourage and monitor PO intakes to meet 75% of his needs Expected Outcomes/Goals: Improved nutrition related labe values Date of Service: Oct 10, 2024 Billing Provider: IGGY RAMIREZ MD Common Visit Codes: [id number] INP/OBS CARE(HIGH) Secondary Visit Codes: [id number] CARE PLAN 30 MINUTES IGGY RAMIREZ MD Oct 10, 2024 11:28
[2024-10-10] MEDS ORDERED: AMPICILLIN & SULBACTAM SODIUM 3 GM in SODIUM CHL 0.9% 100 ML IV SCH (11:30)
[2024-10-10] MEDS: AMPICILLIN & SULBACTAM SODIUM 3 GM in SODIUM CHL 0.9% 100 ML IV ONE (18:00)
[2024-10-10] MEDS: SODIUM CHL 0.9% 1000 ML BAG XX ONE (18:18)
[2024-10-11] VITALS (9 sets, daily range): BP systolic 151–169; BP diastolic 29–55; PULSE 56–71; RESP 16–18; TEMP 97.6–98.7; O2SAT 90–100
--- NOTE | 2024-10-11 07:13 | DVH ---
CHEST RADIOGRAPH Indication: right pneumonia Technique: Single frontal view of the chest was obtained Comparison: XY CHEST PORTABLE on DOS: 10/09/24, XY CHEST PORTABLE on DOS: 10/05/24, XY CHEST PORTABLE on DOS: 10/09/24 FINDINGS: Lines and Tubes: None Lungs: Multifocal right lung consolidative opacities. Pleura: Small to moderate right pleural effusion. No pneumothorax. Cardiomediastinal contours: Cardiomegaly. Bones: No acute osseous abnormality. IMPRESSION: 1. Small to moderate right pleural effusion.
--- NOTE | 2024-10-11 13:44 | DVHPN2 ---
Progress Note Date Seen: Oct 11, 2024 Medical Necessity Reason Pt with a Central, PICC or Fol: No Subjective Patient reports: No new complaints Review of Systems: HEENT:Normal, CVS:Normal, RESPIRATORY:Normal, GI:Normal, :Normal, MSK:Normal, NEURO:Normal Objective vital signs Vital Sign Date Time Temp Pulse Resp B/P (MAP) Pulse Ox O2 Delivery O2 Flow Rate FiO2 10/11/24 13:00 98.1 71 17 169/55 (93) 90 98.1 10/10/24 20:00 Nasal Cannula* 2 28 Total Intake and Output 10/10/24 10/10/24 10/11/24 15:00 23:00 07:00 Intake Total 50 ml 150 ml 50 ml Output Total 0 ml 0 ml Balance 50 ml 150 ml 50 ml medications Current Medications Medications Dose Ordered Sig/Terrance Route Start Time Stop Time Status Last Admin Dose Admin Ondansetron HCl 4 mg Q4HP PRN IV 10/05/24 14:45 Nitroglycerin 0.4 mg Q5MINP PRN SL 10/05/24 14:45 Hydralazine HCl 10 mg Q6HP PRN IV 10/05/24 18:00 10/11/24 08:57 10 MG Levothyroxine Sodium 50 mcg DAILY IV 10/06/24 10:00 10/11/24 08:41 50 MCG Lorazepam 1 mg Q5MINP PRN IV 10/05/24 20:45 Levetiracetam 250 mg/Sodium Chloride 52.5 ml @ 206.107 mls/hr BID IV 10/05/24 22:00 Cancel Phenytoin Sodium 100 mg Q12HR IV 10/06/24 22:00 10/11/24 08:41 100 MG Diagnostic Test (Pha) 1 strip IQ4HR 10/06/24 20:00 10/11/24 12:16 1 STRIP Insulin Human Regular IQ4HR SC 10/06/24 20:00 Dextrose 50 ml UD PRN IV 10/06/24 18:00 10/09/24 10:55 50 ML Levetiracetam 250 mg/Sodium Chloride 52.5 ml @ 210 mls/hr Q12H IV 10/07/24 20:00 10/11/24 08:41 210 MLS/HR Morphine Sulfate 1 mg Q4HPRN PRN IV 10/09/24 12:00 Examination: GENERAL:Normal, HEENT:Normal, NECK:Normal, LUNGS:Normal, CVS:Normal, ABDOMEN:Normal, MSK:Normal, SKIN:Normal, NEURO:Normal, NEURO:Abnormal (left hemiplegia), :Normal laboratory and microbiology Laboratory Tests 10/10/24 05:02 10/09/24 16:34 Test 10/09/24 16:34 Range/Units Serum Glucose 158 H 74-106 mg/dL Microbiology Date/Time Source Procedure Growth Status 10/08/24 19:27 Blood Blood Culture - Preliminary NO GROWTH AFTER 48 HOURS OF INCUBATION. Resulted Problem List/Assessment/Plan Problem List/Assessment/Plan #1 encephalopathy ? metabolic/hypoglycemia: improved #2 esrd: dialysis today #3 hyperkalemia #4 htn #5 breakthrough seizure; cont meds #6 aspiration pneumonia: chest xray, iv antibiotics #7 cva with left hemiplegia/aphasia #8 thrombocytopenia: dc lovenox, monitor #9 dm: acu checks, tresiba #10 hyperlipidemia #11 hypothyroidism: cont med advance care planning- full code- time spent 19mins Plan discussed with: Patient, Spouse My Orders My Orders Orders - IGGY RAMIREZ MD Procedure Category Date Status Time Vitamin B12 LAB 10/10/24 Logged 21:04 Folate (Folic Acid) LAB 10/10/24 Logged 21:04 Free T4 (Free LAB 10/10/24 Logged Thyroxine) 21:04 (Nf) Tresiba PHA 10/12/24 Verified 10:00 Phenytoin Suspension PHA 10/12/24 Verified (Dilantin Suspensio 10:00 Levothyroxine Tablet PHA 10/12/24 Verified (Synthroid Tablet) 06:00 Hydralazine Hcl PHA 10/11/24 Verified Tablet (Apresoline 22:00 * Special Makeup Fx Artist Instructor CONS 10/11/24 Verified Consult Dietary Evaluation Review Comments: encourage and monitor PO intakes to meet 75% of his needs Expected Outcomes/Goals: Improved nutrition related labe values Date of Service: Oct 11, 2024 Billing Provider: IGGY RAMIREZ MD Common Visit Codes: [id number] INP/OBS CARE(HIGH) IGGY RAMIREZ MD Oct 11, 2024 13:44
[2024-10-11 14:34] LABS: Basophils # (auto) 0 10 ^3/uL (0-0.2); Basophils % (auto) 1.2 % (0.0-2.0); Eosinophils # (auto) 0.3 10 ^3/uL (0-0.8); Eosinophils % (auto) 8.8 % (0.0-7.0); Hematocrit 32.2 % (41.0-53.0); Hemoglobin 10.8 g/dL (13.5-17.5); Lymphocytes # (auto) 0.5 10 ^3/uL (0.4-5.4); Lymphocytes % (auto) 13.5 % (10.0-50.0); Mean Corpuscular Hgb Conc. 33.7 g/dL (32.0-36.0); Mean Corpuscular Volume 101.1 fL (80.0-100.0); Monocytes # (auto) 0.3 10 ^3/uL (0-1.3); Monocytes % (auto) 7.8 % (0.0-12.0); Neutrophils # (auto) 2.6 10 ^3/uL (1.6-8.6); Neutrophils % (auto) 68.7 % (37.0-80.0); Nucleated Red Blood Cells % 0.1 %; Platelet Count (auto) 111 10^3/uL (140-450); Red Blood Cells 3.19 10^6/uL (4.5-5.90); Red Cell Distribution Width 15.7 % (11.8-14.3); White Blood Cell 3.7 10^3/uL (4.4-10.8)
[2024-10-11 14:40] LABS: Anion Gap 8 (5-15); Carbon Dioxide 27 mmol/L (20-31)
[2024-10-11 14:46] LABS: BUN/Creatinine Ratio 6.1 (10.0-20.0)
[2024-10-11 14:48] LABS: Blood Urea Nitrogen 31 mg/dL (9-23); Calcium 7.8 mg/dL (8.7-10.4); Chloride 97 mmol/L (98-107); Glucose 374 mg/dL (74-106); Sodium 132 mmol/L (136-145)
[2024-10-11 14:49] LABS: Free T4 (Free Thyroxine) 0.83 ng/dL (0.89-1.76)
[2024-10-11 14:51] LABS: Folate (Folic Acid) 21.48 ng/mL (>5.38)
[2024-10-11] MEDS: INSULIN DEGLUDEC INJ ONE (15:00)
--- NOTE | 2024-10-11 17:24 | DVHPN2 ---
Progress Note Date Seen: Oct 11, 2024 Medical Necessity Reason Pt with a Central, PICC or Fol: No Subjective Review of Systems: NEURO:Abnormal Objective vital signs Vital Sign Date Time Temp Pulse Resp B/P (MAP) Pulse Ox O2 Delivery O2 Flow Rate FiO2 10/11/24 13:00 98.1 71 17 169/55 (93) 90 98.1 10/11/24 10:00 Room Air 0.0 10/11/24 10:00 21 Total Intake and Output 10/10/24 10/10/24 10/11/24 14:59 22:59 06:59 Intake Total 50 ml 150 ml 50 ml Output Total 0 ml 0 ml Balance 50 ml 150 ml 50 ml medications Current Medications Medications Dose Ordered Sig/Terrance Route Start Time Stop Time Status Last Admin Dose Admin Ondansetron HCl 4 mg Q4HP PRN IV 10/05/24 14:45 Nitroglycerin 0.4 mg Q5MINP PRN SL 10/05/24 14:45 Hydralazine HCl 10 mg Q6HP PRN IV 10/05/24 18:00 10/11/24 08:57 10 MG Lorazepam 1 mg Q5MINP PRN IV 10/05/24 20:45 Levetiracetam 250 mg/Sodium Chloride 52.5 ml @ 206.107 mls/hr BID IV 10/05/24 22:00 Cancel Diagnostic Test (Pha) 1 strip IQ4HR 10/06/24 20:00 10/11/24 14:19 1 STRIP Dextrose 50 ml UD PRN IV 10/06/24 18:00 10/09/24 10:55 50 ML Levetiracetam 250 mg/Sodium Chloride 52.5 ml @ 210 mls/hr Q12H IV 10/07/24 20:00 10/11/24 08:41 210 MLS/HR Morphine Sulfate 1 mg Q4HPRN PRN IV 10/09/24 12:00 Patient Own Medication 10 units DAILY INJ 10/12/24 10:00 Phenytoin Sodium 200 mg DAILY PO 10/12/24 10:00 Levothyroxine Sodium 25 mcg QAM@0600 PO 10/12/24 06:00 Hydralazine HCl 100 mg Q12HR PO 10/11/24 22:00 Examination: GENERAL:Abnormal, NEURO:Abnormal laboratory and microbiology Laboratory Tests 10/11/24 14:13 Test 10/11/24 14:13 Range/Units Serum Glucose 374 #H 74-106 mg/dL Microbiology Date/Time Source Procedure Growth Status 10/08/24 19:27 Blood Blood Culture - Preliminary NO GROWTH AFTER 48 HOURS OF INCUBATION. Resulted Problem List/Assessment/Plan Problem List/Assessment/Plan End-stage renal disease on hemodialysis Hypoglycemia Altered mental status Possible seizure? hx CVA Hyperkalemia Hemodialysis treatment will be scheduled Wednesday Avoid hypotension neurology consulted Plan discussed with: Patient, Spouse Dietary Evaluation Review Comments: encourage and monitor PO intakes to meet 75% of his needs Expected Outcomes/Goals: Improved nutrition related labe values SANDY THOMAS MD Oct 11, 2024 17:24
[2024-10-11] MEDS: hydrALAZINE HCL 25 MG TAB PO SCH (21:48)
--- NOTE | 2024-10-11 22:12 | DVHEEG2 ---
Neurology EEG Procedural Note Procedural Note EXAM DATE: 10/10/2024 REFERRING DOCTOR: Dr. Marinelli TECHNIQUE: Eighteen channels of EEG, 2 channels of EOG, and 1 channel of EKG were recorded using the International 10/20 system. CLINICAL DATA: The patient was referred for an EEG evaluation for the evidence of seizure disorder. MEDICATIONS: See chart BACKGROUND ACTIVITY: The record showed moderate amount of diffuse low to medium voltage polymorphic delta and theta activity over both hemispheres. ACTIVATION: Hyperventilation: Not done Photic Stimulation: Not done Sleep: Not seen IMPRESSION: This is a moderately abnormal EEG, this EEG seen in moderate cerebral dysfunction due to metabolic/hypoxic encephalopathy or medication effects, please correlate clinically. The EKG channel showed a regular heart rate of 60 per minute [place] [address] ROXANN MARINELLI MD Oct 11, 2024 22:12
--- NOTE | 2024-10-11 23:23 | DVHPN2 ---
Progress Note - Dictate Date Seen: Oct 11, 2024 Medical Necessity Reason Pt with a Central, PICC or Fol: No Subjective Mr. Fowler is a 59 years old gentleman with a history of hypertension, diabetes, dyslipidemia, end-stage renal failure on hemodialysis, stroke with residual left-sided hemiplegia, depression, seizure disorder, he came to the [facility] on 10/01/24 for ALOC I saw him on 04/08/2022, 07/09/22 for seizure (MR #:[id number]) I have seen and examined the patient, discussed with his nurse. The case was discussed with No obvious change on physical examination Blood culture, 10/06/24: Gram-positive cocci in clusters Blood culture 10/08/2024: Hepatitis panel, 10/07/2024: Negative Plasma alcohol, 10/05/2024: <3 Dilantin, 10/06/2024: <2, Dilantin: 10/07/2024: 8.8 WBC/HB/PLT/MCV, 10/05/2024: 3.3/11.7/161/102.8 BUN/CR, 10/05/2024: 54/5.64, 10/26/2024: 56/6.44 Chest x-ray, 10/05/2024: Bibasilar opacities with small bilateral effusions. Aspiration pneumonia not excluded CT head, 07/09/2022: 1. No acute intracranial hemorrhage. 2. Old infarcts at the centrum semiovales extending into the basal ganglias, right greater left. 2. Mild generalized volume loss in the background of scattered chronic ischemic small vessel disease changes. MRI can be considered for further evaluation if symptoms persist or continued clinical concern. CT head, 10/05/2024: 1. No CT evidence of acute intracranial abnormality. 2. Nonacute findings as described above CT head, 10/08/24: No evidence of acute intracranial abnormality CTA neck, 04/29/2022: No evidence of a dissection, aneurysm, or stenosis CTA head, neck, 10/08/2024: 1. No evidence of hemodynamically significant intracranial stenosis, proximal occlusion or aneurysm. 2. No evidence of hemodynamically significant cervical stenosis or dissection MRI head, 04/08/2022: There is large chronic right basal ganglion, right insular cortex region right operculum hemorrhagic infarct with associated encephalomalacia. There is associated wallerian degeneration. There is moderate chronic microvascular ischemic disease of supratentorial white matter. There is no acute infarct. There is no acute hemorrhage vital signs Vital Sign Date Time Temp Pulse Resp B/P (MAP) Pulse Ox O2 Delivery O2 Flow Rate FiO2 10/11/24 21:48 157/52 10/11/24 21:00 98.7 64 17 99 98.7 10/11/24 10:00 Room Air 0.0 10/11/24 10:00 21 Total Intake and Output 10/10/24 10/10/24 10/11/24 15:00 23:00 07:00 Intake Total 50 ml 150 ml 50 ml Output Total 0 ml 0 ml Balance 50 ml 150 ml 50 ml medications Current Medications Medications Dose Ordered Sig/Terrance Route Start Time Stop Time Status Last Admin Dose Admin Ondansetron HCl 4 mg Q4HP PRN IV 10/05/24 14:45 Nitroglycerin 0.4 mg Q5MINP PRN SL 10/05/24 14:45 Hydralazine HCl 10 mg Q6HP PRN IV 10/05/24 18:00 10/11/24 18:49 10 MG Lorazepam 1 mg Q5MINP PRN IV 10/05/24 20:45 Levetiracetam 250 mg/Sodium Chloride 52.5 ml @ 206.107 mls/hr BID IV 10/05/24 22:00 Cancel Diagnostic Test (Pha) 1 strip IQ4HR 10/06/24 20:00 10/11/24 20:40 1 STRIP Dextrose 50 ml UD PRN IV 10/06/24 18:00 10/09/24 10:55 50 ML Levetiracetam 250 mg/Sodium Chloride 52.5 ml @ 210 mls/hr Q12H IV 10/07/24 20:00 10/11/24 21:46 210 MLS/HR Morphine Sulfate 1 mg Q4HPRN PRN IV 10/09/24 12:00 Patient Own Medication 10 units DAILY INJ 10/12/24 10:00 Phenytoin Sodium 200 mg DAILY PO 10/12/24 10:00 Levothyroxine Sodium 25 mcg QAM@0600 PO 10/12/24 06:00 Hydralazine HCl 100 mg Q12HR PO 10/11/24 22:00 objective General: the patient is well developed and nourished. No acute distress. Left upper extremity spasticity MENTAL STATUS: Subjective SPEECH, LANGUAGE, HIGHER CORTICAL FUNCTION: Subjective CRANIAL NERVES: Pupils are equal, round and reactive. EOMs full and conjugate. Mild bilateral gaze evoked nystagmus. Facial sensation intact in all three divisions bilaterally. Mandibular strength intact. Facial muscles symmetrical and strength intact. SENSATION: Sensation to touch and pinprick is okay. MOTOR: Diminished tone in the left lower extremity. Atrophy in the left extremities. No fasciculations. He moves the right arm and leg, no movement in the left extremities REFLEXES: Deep tendon reflexes are symmetrical. No pathological reflexes. 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 Cognitive dysfunction secondary to stroke, not confirmed with his Aspiration, pneumonia Sepsis Microcytic anemia Assessment/Plan Monitoring Supportive treatment Vitamin B12, folic acid, TSH Dilantin level Follow-up labs EEG IV antibiotics Dilantin 100mg IV Bid Keppra 250mg IV Bid Ativan for seizure breakthrough Aspirin 81 mg Daily Lipitor 20 mg daily DVT prophylaxis Further address his spasticity as outpatient Follow with his doctors ANTIONE on discharge More recommendation per clinical course Okay to discharge in the morning with no modification of his seizure treatment from a neurologic point of view This medical document was created using an electronic medical record system with [employer] dictation system. Although this document has been carefully reviewed, there may still be some phonetic and typographical errors. These areas are purely typographical due to imperfections of the software programs, and do not reflect any compromise in the patient's medical care. Prognosis poor Dietary Evaluation Review Comments: encourage and monitor PO intakes to meet 75% of his needs Expected Outcomes/Goals: Improved nutrition related labe values Plan discussed with: Other ROXANN MARINELLI MD Oct 11, 2024 23:23
[2024-10-12] VITALS (9 sets, daily range): BP systolic 145–189; BP diastolic 59–70; PULSE 60–65; RESP 14–18; TEMP 98–98.8; O2SAT 98–100
[2024-10-12] MEDS: LEVOTHYROXINE SODIUM 25 MCG TAB PO SCH (05:08)
[2024-10-12] MEDS: TRESIBA INJ SCH (09:13)
[2024-10-12] MEDS: PHENYTOIN 100 MG/4 ML SUSP PO SCH (09:14)
--- NOTE | 2024-10-12 10:45 | DVHPN2 ---
Progress Note Date Seen: Oct 12, 2024 Medical Necessity Reason Pt with a Central, PICC or Fol: No Subjective Patient reports: No new complaints Review of Systems: HEENT:Normal, CVS:Normal, RESPIRATORY:Normal, GI:Normal, :Normal, MSK:Normal, NEURO:Normal Objective vital signs Vital Sign Date Time Temp Pulse Resp B/P (MAP) Pulse Ox O2 Delivery O2 Flow Rate FiO2 10/12/24 09:00 98.8 62 15 145/65 (91) 100 98.8 10/11/24 20:00 Nasal Cannula* 1 24 Total Intake and Output 10/11/24 10/11/24 10/12/24 15:00 23:00 07:00 Intake Total 60 ml 0 ml Balance 60 ml 0 ml medications Current Medications Medications Dose Ordered Sig/Terrance Route Start Time Stop Time Status Last Admin Dose Admin Ondansetron HCl 4 mg Q4HP PRN IV 10/05/24 14:45 Nitroglycerin 0.4 mg Q5MINP PRN SL 10/05/24 14:45 Hydralazine HCl 10 mg Q6HP PRN IV 10/05/24 18:00 10/11/24 18:49 10 MG Lorazepam 1 mg Q5MINP PRN IV 10/05/24 20:45 Levetiracetam 250 mg/Sodium Chloride 52.5 ml @ 206.107 mls/hr BID IV 10/05/24 22:00 Cancel Diagnostic Test (Pha) 1 strip IQ4HR 10/06/24 20:00 10/12/24 09:12 1 STRIP Dextrose 50 ml UD PRN IV 10/06/24 18:00 10/09/24 10:55 50 ML Levetiracetam 250 mg/Sodium Chloride 52.5 ml @ 210 mls/hr Q12H IV 10/07/24 20:00 10/12/24 09:46 210 MLS/HR Morphine Sulfate 1 mg Q4HPRN PRN IV 10/09/24 12:00 Patient Own Medication 10 units DAILY INJ 10/12/24 10:00 10/12/24 09:13 10 UNITS Phenytoin Sodium 200 mg DAILY PO 10/12/24 10:00 10/12/24 09:14 200 MG Levothyroxine Sodium 25 mcg QAM@0600 PO 10/12/24 06:00 Hydralazine HCl 100 mg Q12HR PO 10/11/24 22:00 Examination: GENERAL:Normal, HEENT:Normal, NECK:Normal, LUNGS:Normal, CVS:Normal, ABDOMEN:Normal, MSK:Normal, SKIN:Normal, NEURO:Normal, NEURO:Abnormal (LEFT WEAKNESS), :Normal laboratory and microbiology Laboratory Tests 10/11/24 14:13 Test 10/11/24 14:13 Range/Units Serum Glucose 374 #H 74-106 mg/dL Microbiology Date/Time Source Procedure Growth Status 10/08/24 19:27 Blood Blood Culture - Preliminary NO GROWTH AFTER 72 HOURS OF INCUBATION. Resulted Problem List/Assessment/Plan Problem List/Assessment/Plan #1 encephalopathy ? metabolic/hypoglycemia: improved #2 esrd: dialysis today #3 hyperkalemia #4 htn #5 breakthrough seizure; cont meds #6 aspiration pneumonia: chest xray, iv unasyn #7 cva with left hemiplegia/aphasia #8 thrombocytopenia: dc lovenox, monitor #9 dm: acu checks, tresiba #10 hyperlipidemia #11 hypothyroidism: cont med advance care planning- full code- time spent 19mins long dw regards possible need for peg tube Plan discussed with: Patient, Spouse My Orders My Orders Orders - IGGY RAMIREZ MD Procedure Category Date Status Time (Nf) Tresiba PHA 10/12/24 In Process 10:00 Phenytoin Suspension PHA 10/12/24 In Process (Dilantin Suspensio 10:00 Levothyroxine Tablet PHA 10/12/24 In Process (Synthroid Tablet) 06:00 Hydralazine Hcl PHA 10/11/24 In Process Tablet (Apresoline 22:00 * [employer] CONS 10/11/24 Transmitted Consult Basic Metabolic Panel LAB 10/12/24 Logged 06:00 Complete Blood Count LAB 10/12/24 Logged 06:00 Unasyn PHA 10/12/24 Verified Ampicillin/Sulbactam 10:45 Dietary Evaluation Review Comments: encourage and monitor PO intakes to meet 75% of his needs Expected Outcomes/Goals: Improved nutrition related labe values Date of Service: Oct 12, 2024 Billing Provider: IGGY RAMIREZ MD Common Visit Codes: [id number] INP/OBS CARE(HIGH) IGGY RAMIREZ MD Oct 12, 2024 10:45
[2024-10-12 11:15] LABS: Basophils # (auto) 0 10 ^3/uL (0-0.2); Basophils % (auto) 1.2 % (0.0-2.0); Eosinophils # (auto) 0.4 10 ^3/uL (0-0.8); Eosinophils % (auto) 9.9 % (0.0-7.0); Hematocrit 24.8 % (41.0-53.0); Hemoglobin 8.7 g/dL (13.5-17.5); Lymphocytes # (auto) 0.5 10 ^3/uL (0.4-5.4); Lymphocytes % (auto) 14.4 % (10.0-50.0); Mean Corpuscular Hemoglobin 35.2 pg (28.0-32.0); Mean Corpuscular Hgb Conc. 34.9 g/dL (32.0-36.0); Mean Corpuscular Volume 100.6 fL (80.0-100.0); Monocytes # (auto) 0.3 10 ^3/uL (0-1.3); Monocytes % (auto) 8.3 % (0.0-12.0); Neutrophils # (auto) 2.4 10 ^3/uL (1.6-8.6); Neutrophils % (auto) 66.2 % (37.0-80.0); Platelet Count (auto) 112 10^3/uL (140-450); Red Blood Cells 2.46 10^6/uL (4.5-5.90); Red Cell Distribution Width 15.4 % (11.8-14.3); White Blood Cell 3.6 10^3/uL (4.4-10.8)
[2024-10-12 11:28] LABS: Anion Gap 7 (5-15); Carbon Dioxide 30 mmol/L (20-31)
[2024-10-12 11:33] LABS: BUN/Creatinine Ratio 6.2 (10.0-20.0)
[2024-10-12 11:35] LABS: Blood Urea Nitrogen 36 mg/dL (9-23); Calcium 7.5 mg/dL (8.7-10.4); Chloride 97 mmol/L (98-107); Glucose 198 mg/dL (74-106); Sodium 134 mmol/L (136-145)
--- NOTE | 2024-10-12 14:46 | DVHPN2 ---
Progress Note Date Seen: Oct 12, 2024 Medical Necessity Reason Pt with a Central, PICC or Fol: No Objective vital signs Vital Sign Date Time Temp Pulse Resp B/P (MAP) Pulse Ox O2 Delivery O2 Flow Rate FiO2 10/12/24 13:00 98.5 65 15 189/70 (109) 99 98.5 10/12/24 10:00 Room Air* 0 21 Total Intake and Output 10/11/24 10/11/24 10/12/24 15:00 23:00 07:00 Intake Total 60 ml 0 ml Balance 60 ml 0 ml medications Current Medications Medications Dose Ordered Sig/Terrance Route Start Time Stop Time Status Last Admin Dose Admin Ondansetron HCl 4 mg Q4HP PRN IV 10/05/24 14:45 Nitroglycerin 0.4 mg Q5MINP PRN SL 10/05/24 14:45 Hydralazine HCl 10 mg Q6HP PRN IV 10/05/24 18:00 10/11/24 18:49 10 MG Lorazepam 1 mg Q5MINP PRN IV 10/05/24 20:45 Levetiracetam 250 mg/Sodium Chloride 52.5 ml @ 206.107 mls/hr BID IV 10/05/24 22:00 Cancel Diagnostic Test (Pha) 1 strip IQ4HR 10/06/24 20:00 10/12/24 12:11 1 STRIP Dextrose 50 ml UD PRN IV 10/06/24 18:00 10/09/24 10:55 50 ML Levetiracetam 250 mg/Sodium Chloride 52.5 ml @ 210 mls/hr Q12H IV 10/07/24 20:00 10/12/24 09:46 210 MLS/HR Morphine Sulfate 1 mg Q4HPRN PRN IV 10/09/24 12:00 Patient Own Medication 10 units DAILY INJ 10/12/24 10:00 10/12/24 09:13 10 UNITS Phenytoin Sodium 200 mg DAILY PO 10/12/24 10:00 10/12/24 09:14 200 MG Levothyroxine Sodium 25 mcg QAM@0600 PO 10/12/24 06:00 Hydralazine HCl 100 mg Q12HR PO 10/11/24 22:00 Ampicillin Sodium/ Sulbactam Sodium 3 gm/Sodium Chloride 100 ml @ 100 mls/hr Q12H IV 10/12/24 10:45 Examination: GENERAL:Abnormal, CVS:Abnormal laboratory and microbiology Laboratory Tests 10/12/24 10:45 Test 10/12/24 10:45 Range/Units Serum Glucose 198 #H 74-106 mg/dL Microbiology Date/Time Source Procedure Growth Status 10/08/24 19:27 Blood Blood Culture - Preliminary NO GROWTH AFTER 72 HOURS OF INCUBATION. Resulted Problem List/Assessment/Plan Problem List/Assessment/Plan End-stage renal disease on hemodialysis Hypoglycemia Altered mental status Possible seizure? hx CVA Hyperkalemia Hemodialysis treatment will be scheduled Wednesday Avoid hypotension neurology consulted Plan discussed with: Patient My Orders My Orders Orders - SANDY THOMAS MD Procedure Category Date Status Time Hemodialysis Orders ORDERS 10/12/24 Transmitted 04:00 Dietary Evaluation Review Comments: encourage and monitor PO intakes to meet 75% of his needs Expected Outcomes/Goals: Improved nutrition related labe values SANDY THOMAS MD Oct 12, 2024 14:46
[2024-10-12] MEDS: AMPICILLIN & SULBACTAM SODIUM 3 GM in SODIUM CHL 0.9% 100 ML IV SCH (14:48)
[2024-10-13] VITALS (10 sets, daily range): BP systolic 147–172; BP diastolic 30–69; PULSE 54–67; RESP 16–18; TEMP 98–98.9; O2SAT 93–100
--- NOTE | 2024-10-13 11:04 | DVHPN2 ---
Subjective Patient encephalopathic Reviewed: Care Plan, H&P, Labs, Medications, Previous Orders, Radiology Changes from previous H/P or p: No Changes General: Per HPI Eyes: No Pain, No Vision change, No Conjunctivae inflammation, No Eyelid inflammation, No Other, No Redness ENT: No Ear pain, No Ear discharge, No Nose pain, No Nose discharge, No Nose congestion, No Mouth pain, No Mouth swelling, No Throat pain, No Throat swelling, No Other Respiratory: No Cough, No Dry, No Shortness of breath, No SOB with excertion, No Wheezing, No Hemoptysis, No Pleuritic Pain, No Sputum, No Other Musculoskeletal: other (Left-sided weakness due to prior stroke); No neck pain, No shoulder pain, No arm pain, No back pain, No hand pain, No leg pain, No foot pain Skin: No Rash, No Lesions, No Jaundice, No Bruising, No Other Objective Vitals Vital Signs Date Time Temp Pulse Resp B/P (MAP) Pulse Ox O2 Delivery O2 Flow Rate FiO2 10/13/24 09:45 147/67 10/13/24 09:00 98.1 59 16 97 98.1 10/12/24 20:00 Nasal Cannula* 1 24 Intake/Output Intake and Output 10/13/24 07:00 Intake Total 1762.5 ml Output Total 1800 ml Balance -37.5 ml Intake Oral 1510 ml IV Total 252.5 ml Output Urine Total 1800 ml General Appearance: Alert, Other (Patient encephalopathic and not following commands) HEENT: Atraumatic, PERRLA Lungs: Other (Rhonchi to right base) Cardiovascular: Normal S1, Normal S2 Abdomen: Normal bowel sounds Musculoskeletal: Other (Left hemiplegia with right arm contracture) Extremities: No cyanosis, No edema, Normal pulses Neuro: Other (Aphasic) Psych/Mental Status: Other (Altered mental status) Medications Current Medications Medications Dose Ordered Sig/Terrance Route Start Time Stop Time Status Last Admin Dose Admin Ondansetron HCl 4 mg Q4HP PRN IV 10/05/24 14:45 Nitroglycerin 0.4 mg Q5MINP PRN SL 10/05/24 14:45 Hydralazine HCl 10 mg Q6HP PRN IV 10/05/24 18:00 10/11/24 18:49 10 MG Lorazepam 1 mg Q5MINP PRN IV 10/05/24 20:45 Levetiracetam 250 mg/Sodium Chloride 52.5 ml @ 206.107 mls/hr BID IV 10/05/24 22:00 Cancel Diagnostic Test (Pha) 1 strip IQ4HR 10/06/24 20:00 10/13/24 09:40 1 STRIP Dextrose 50 ml UD PRN IV 10/06/24 18:00 10/09/24 10:55 50 ML Levetiracetam 250 mg/Sodium Chloride 52.5 ml @ 210 mls/hr Q12H IV 10/07/24 20:00 10/13/24 10:12 210 MLS/HR Morphine Sulfate 1 mg Q4HPRN PRN IV 10/09/24 12:00 Patient Own Medication 10 units DAILY INJ 10/12/24 10:00 10/13/24 09:40 10 UNITS Phenytoin Sodium 200 mg DAILY PO 10/12/24 10:00 10/13/24 09:43 200 MG Levothyroxine Sodium 25 mcg QAM@0600 PO 10/12/24 06:00 Hydralazine HCl 100 mg Q12HR PO 10/11/24 22:00 10/12/24 21:33 100 MG Ampicillin Sodium/ Sulbactam Sodium 3 gm/Sodium Chloride 100 ml @ 100 mls/hr Q12H IV 10/12/24 10:45 10/13/24 10:33 100 MLS/HR Laboratory Results Laboratory Tests 10/12/24 10:45 Microbiology Microbiology Date/Time Source Procedure Growth Status 10/08/24 19:27 Blood Blood Culture - Preliminary NO GROWTH AFTER 72 HOURS OF INCUBATION. Resulted Labs and/or images reviewed: Labs reviewed by me, Image(s) reviewed by me Assessment/Plan Assessment/Plan Impression: -metabolic encephalopathy -end-stage renal disease with hemodialysis -hyperkalemia -hypoglycemic episodes -aspiration pneumonia -sepsis -hypothyroidism -thrombocytopenia -diabetes mellitus -primary hypertension -history of CVA with left hemiplegia -aphasia -seizure disorder Plan: -long discussion made with patient's regarding possible PEG tube placement. She states that his normal mentation includes patient able to follow commands as well as speaking. She states that at the current presentation, this is not his current neurological status. All questions answered regarding PEG tube placement. She states that she would like to continue thinking about the procedure. Given the patient clinically is not of normal mentation at his baseline, recommend to continue treatment for aspiration pneumonia until patient presents improvement with aspiration risk before discharging. -continue antibiotic therapy with Unasyn -regular insulin sliding scale -HD per Nephrology, noted TTS -strict aspiration precaution -continue Keppra -continue antidiabetic medication with long-acting insulin, Tresiba -repeat labs and chest x-ray in a.m. Total time spent with patient discussing and formulating plan of care: 35 minutes. Total time spent with patient and family regarding advance care plannin minutes. This medical document was created using an electronic medical record system with [employer] dictation system. Although this document has been carefully reviewed, there may still be some phonetic and typographical errors. These areas are purely typographical due to imperfections of the software programs, and do not reflect any compromise in the patient's medical care. Plan discussed with: Patient, Spouse, Other (RN) Date of Service: Oct 13, 2024 Billing Provider: MICKEY LEWIS NP Common Visit Codes: [id number] INP/OBS CARE(HIGH) MICKEY LEWIS NP Oct 13, 2024 11:04
--- NOTE | 2024-10-13 19:09 | DVHPN2 ---
Progress Note Date Seen: Oct 13, 2024 Medical Necessity Reason Pt with a Central, PICC or Fol: No Subjective Patient reports: Other Review of Systems: Deferred Objective vital signs Vital Sign Date Time Temp Pulse Resp B/P (MAP) Pulse Ox O2 Delivery O2 Flow Rate FiO2 10/13/24 16:48 98.7 60 16 153/59 (90) 100 98.7 10/13/24 10:00 Room Air* 0 21 Total Intake and Output 10/12/24 10/12/24 10/13/24 15:00 23:00 07:00 Intake Total 52.5 ml 1500 ml 210 ml Output Total 1800 ml Balance 52.5 ml -300 ml 210 ml medications Current Medications Medications Dose Ordered Sig/Terrance Route Start Time Stop Time Status Last Admin Dose Admin Ondansetron HCl 4 mg Q4HP PRN IV 10/05/24 14:45 Nitroglycerin 0.4 mg Q5MINP PRN SL 10/05/24 14:45 Hydralazine HCl 10 mg Q6HP PRN IV 10/05/24 18:00 10/11/24 18:49 10 MG Lorazepam 1 mg Q5MINP PRN IV 10/05/24 20:45 Levetiracetam 250 mg/Sodium Chloride 52.5 ml @ 206.107 mls/hr BID IV 10/05/24 22:00 Cancel Diagnostic Test (Pha) 1 strip IQ4HR 10/06/24 20:00 10/13/24 15:59 1 STRIP Dextrose 50 ml UD PRN IV 10/06/24 18:00 10/09/24 10:55 50 ML Levetiracetam 250 mg/Sodium Chloride 52.5 ml @ 210 mls/hr Q12H IV 10/07/24 20:00 10/13/24 10:12 210 MLS/HR Morphine Sulfate 1 mg Q4HPRN PRN IV 10/09/24 12:00 Patient Own Medication 10 units DAILY INJ 10/12/24 10:00 10/13/24 09:40 10 UNITS Phenytoin Sodium 200 mg DAILY PO 10/12/24 10:00 10/13/24 09:43 200 MG Levothyroxine Sodium 25 mcg QAM@0600 PO 10/12/24 06:00 Hydralazine HCl 100 mg Q12HR PO 10/11/24 22:00 10/12/24 21:33 100 MG Ampicillin Sodium/ Sulbactam Sodium 3 gm/Sodium Chloride 100 ml @ 100 mls/hr Q12H IV 10/12/24 10:45 10/13/24 10:33 100 MLS/HR laboratory and microbiology Laboratory Tests 10/12/24 10:45 Test 10/12/24 10:45 Range/Units Serum Glucose 198 #H 74-106 mg/dL Microbiology Date/Time Source Procedure Growth Status 10/08/24 19:27 Blood Blood Culture - Preliminary NO GROWTH AFTER 72 HOURS OF INCUBATION. Resulted Problem List/Assessment/Plan Problem List/Assessment/Plan End-stage renal disease on hemodialysis Hypoglycemia Altered mental status Possible seizure? hx CVA Hyperkalemia Hemodialysis tomorrow Versus Wednesday depending on staffing Avoid hypotension Plan discussed with: Other Dietary Evaluation Review Comments: encourage and monitor PO intakes to meet 75% of his needs Expected Outcomes/Goals: Improved nutrition related labe values RUPALI ALFARO MD Oct 13, 2024 19:08
[2024-10-14] VITALS (9 sets, daily range): BP systolic 140–181; BP diastolic 54–70; PULSE 52–83; RESP 17–18; TEMP 97.6–98.8; O2SAT 90–97
--- NOTE | 2024-10-14 08:13 | DVHPN2 ---
Progress Note Date Seen: Oct 14, 2024 Medical Necessity Reason Pt with a Central, PICC or Fol: No Subjective Patient reports: No new complaints Objective vital signs Vital Sign Date Time Temp Pulse Resp B/P (MAP) Pulse Ox O2 Delivery O2 Flow Rate FiO2 10/14/24 05:00 98.6 52 18 140/69 (92) 97 98.6 10/13/24 20:00 Nasal Cannula* 1 24 Total Intake and Output 10/13/24 10/13/24 10/14/24 15:00 23:00 07:00 Intake Total 152.5 ml 390 ml 400 ml Output Total 0 ml Balance 152.5 ml 390 ml 400 ml medications Current Medications Medications Dose Ordered Sig/Terrance Route Start Time Stop Time Status Last Admin Dose Admin Ondansetron HCl 4 mg Q4HP PRN IV 10/05/24 14:45 Nitroglycerin 0.4 mg Q5MINP PRN SL 10/05/24 14:45 Hydralazine HCl 10 mg Q6HP PRN IV 10/05/24 18:00 10/13/24 22:08 10 MG Lorazepam 1 mg Q5MINP PRN IV 10/05/24 20:45 Levetiracetam 250 mg/Sodium Chloride 52.5 ml @ 206.107 mls/hr BID IV 10/05/24 22:00 Cancel Diagnostic Test (Pha) 1 strip IQ4HR 10/06/24 20:00 10/14/24 05:14 1 STRIP Dextrose 50 ml UD PRN IV 10/06/24 18:00 10/14/24 05:41 50 ML Levetiracetam 250 mg/Sodium Chloride 52.5 ml @ 210 mls/hr Q12H IV 10/07/24 20:00 10/13/24 21:25 210 MLS/HR Morphine Sulfate 1 mg Q4HPRN PRN IV 10/09/24 12:00 Patient Own Medication 10 units DAILY INJ 10/12/24 10:00 10/13/24 09:40 10 UNITS Phenytoin Sodium 200 mg DAILY PO 10/12/24 10:00 10/13/24 09:43 200 MG Levothyroxine Sodium 25 mcg QAM@0600 PO 10/12/24 06:00 Hydralazine HCl 100 mg Q12HR PO 10/11/24 22:00 10/12/24 21:33 100 MG Ampicillin Sodium/ Sulbactam Sodium 3 gm/Sodium Chloride 100 ml @ 100 mls/hr Q12H IV 10/12/24 10:45 10/13/24 21:48 100 MLS/HR laboratory and microbiology Laboratory Tests 10/12/24 10:45 Test 10/12/24 10:45 Range/Units Serum Glucose 198 #H 74-106 mg/dL Microbiology Date/Time Source Procedure Growth Status 10/08/24 19:27 Blood Blood Culture - Final NO GROWTH AFTER 5 DAYS OF INCUBATION. Complete Problem List/Assessment/Plan Problem List/Assessment/Plan End-stage renal disease on hemodialysis Hypoglycemia Altered mental status Possible seizure? hx CVA Hyperkalemia Hemodialysis today likely Versus Wednesday depending on staffing Avoid hypotension Plan discussed with: Patient My Orders My Orders Orders - RUPALI ALFARO MD Procedure Category Date Status Time Hemodialysis Orders ORDERS 10/14/24 Transmitted 04:00 Dietary Evaluation Review Comments: encourage and monitor PO intakes to meet 75% of his needs Expected Outcomes/Goals: Improved nutrition related labe values RUPALI ALFARO MD Oct 14, 2024 08:13
--- NOTE | 2024-10-14 13:05 | DVHPN2 ---
Reviewed: Care Plan, H&P, Labs, Medications, Previous Orders, Radiology General: Per HPI Eyes: No Pain, No Vision change, No Conjunctivae inflammation, No Eyelid inflammation, No Other, No Redness ENT: No Ear pain, No Ear discharge, No Nose pain, No Nose discharge, No Nose congestion, No Mouth pain, No Mouth swelling, No Throat pain, No Throat swelling, No Other Respiratory: No Cough, No Dry, No Shortness of breath, No SOB with excertion, No Wheezing, No Hemoptysis, No Pleuritic Pain, No Sputum, No Other Musculoskeletal: other (Left-sided weakness due to prior stroke); No neck pain, No shoulder pain, No arm pain, No back pain, No hand pain, No leg pain, No foot pain Skin: No Rash, No Lesions, No Jaundice, No Bruising, No Other Objective Vitals Vital Signs Date Time Temp Pulse Resp B/P (MAP) Pulse Ox O2 Delivery O2 Flow Rate FiO2 10/14/24 10:00 97 Nasal Cannula* 1 24 10/14/24 09:24 97.9 57 18 155/67 (96) 97.9 Intake/Output Intake and Output 10/14/24 07:00 Intake Total 942.5 ml Output Total 0 ml Balance 942.5 ml Intake Oral 640 ml IV Total 302.5 ml Output Urine Total 0 ml # Voids 1 # Bowel Movements 2 General Appearance: Alert, Other (Patient encephalopathic and not following commands) HEENT: Atraumatic, PERRLA Lungs: Other (Rhonchi to right base) Cardiovascular: Normal S1, Normal S2 Abdomen: Normal bowel sounds Musculoskeletal: Other (Left hemiplegia with right arm contracture) Extremities: No cyanosis, No edema, Normal pulses Neuro: Other (Aphasic) Psych/Mental Status: Other (Altered mental status) Medications Current Medications Medications Dose Ordered Sig/Terrance Route Start Time Stop Time Status Last Admin Dose Admin Ondansetron HCl 4 mg Q4HP PRN IV 10/05/24 14:45 Nitroglycerin 0.4 mg Q5MINP PRN SL 10/05/24 14:45 Hydralazine HCl 10 mg Q6HP PRN IV 10/05/24 18:00 10/13/24 22:08 10 MG Lorazepam 1 mg Q5MINP PRN IV 10/05/24 20:45 Levetiracetam 250 mg/Sodium Chloride 52.5 ml @ 206.107 mls/hr BID IV 10/05/24 22:00 Cancel Diagnostic Test (Pha) 1 strip IQ4HR 10/06/24 20:00 10/14/24 12:48 1 STRIP Dextrose 50 ml UD PRN IV 10/06/24 18:00 10/14/24 05:41 50 ML Levetiracetam 250 mg/Sodium Chloride 52.5 ml @ 210 mls/hr Q12H IV 10/07/24 20:00 10/14/24 08:41 210 MLS/HR Morphine Sulfate 1 mg Q4HPRN PRN IV 10/09/24 12:00 Patient Own Medication 10 units DAILY INJ 10/12/24 10:00 10/14/24 09:31 10 UNITS Phenytoin Sodium 200 mg DAILY PO 10/12/24 10:00 10/14/24 11:02 200 MG Levothyroxine Sodium 25 mcg QAM@0600 PO 10/12/24 06:00 Hydralazine HCl 100 mg Q12HR PO 10/11/24 22:00 10/12/24 21:33 100 MG Ampicillin Sodium/ Sulbactam Sodium 3 gm/Sodium Chloride 100 ml @ 100 mls/hr Q12H IV 10/12/24 10:45 10/14/24 11:02 100 MLS/HR Laboratory Results Laboratory Tests 10/12/24 10:45 Microbiology Microbiology Date/Time Source Procedure Growth Status 10/08/24 19:27 Blood Blood Culture - Final NO GROWTH AFTER 5 DAYS OF INCUBATION. Complete Assessment/Plan Assessment/Plan Impression: -metabolic encephalopathy -end-stage renal disease with hemodialysis -hyperkalemia -hypoglycemic episodes -aspiration pneumonia -sepsis -hypothyroidism -thrombocytopenia -diabetes mellitus -primary hypertension -history of CVA with left hemiplegia -aphasia -seizure disorder Plan: -long discussion made with patient's regarding possible PEG tube placement. She states that his normal mentation includes patient able to follow commands as well as speaking. She states that at the current presentation, this is not his current neurological status. All questions answered regarding PEG tube placement. She states that she would like to continue thinking about the procedure. Given the patient clinically is not of normal mentation at his baseline, recommend to continue treatment for aspiration pneumonia until patient presents improvement with aspiration risk before discharging. -continue antibiotic therapy with Unasyn -regular insulin sliding scale -HD per Nephrology, noted TTS -strict aspiration precaution -continue Keppra -continue antidiabetic medication with long-acting insulin, Tresiba -repeat labs and chest x-ray in a.m. Total time spent with patient discussing and formulating plan of care: 35 minutes. Total time spent with patient and family regarding advance care plannin minutes. This medical document was created using an electronic medical record system with [employer] dictation system. Although this document has been carefully reviewed, there may still be some phonetic and typographical errors. These areas are purely typographical due to imperfections of the software programs, and do not reflect any compromise in the patient's medical care. Plan discussed with: Patient Date of Service: Oct 14, 2024 CHRISTI CUENCA DO Oct 14, 2024 13:05
[2024-10-14 15:44] LABS: Chloride 101 mmol/L (98-107); Potassium 4.2 mmol/L (3.5-5.1); Sodium 137 mmol/L (136-145)
[2024-10-14 15:45] LABS: Anion Gap 7 (5-15); Carbon Dioxide 29 mmol/L (20-31)
[2024-10-14 15:50] LABS: BUN/Creatinine Ratio 6.9 (10.0-20.0)
[2024-10-14 15:51] LABS: Blood Urea Nitrogen 40 mg/dL (9-23); Calcium 7.5 mg/dL (8.7-10.4); Glucose 250 mg/dL (74-106)
[2024-10-14] MEDS: AMPICILLIN & SULBACTAM SODIUM 3 GM in SODIUM CHL 0.9% 100 ML IV SCH (21:46)
[2024-10-15] VITALS (7 sets, daily range): BP systolic 146–168; BP diastolic 28–78; PULSE 62–68; RESP 16–17; TEMP 97.4–98.7; O2SAT 93–96
--- NOTE | 2024-10-15 14:27 | DVHDS2 ---
Discharge Summary Date of Admission Oct 05, 2024 at 14:33 Date of Discharge: Oct 08, 2024 Labs/Diagnostic Data: Laboratory Results Test 10/15/24 12:28 10/14/24 15:11 10/12/24 10:45 10/11/24 14:13 POC Glucose 211 mg/dl (70-106) Sodium Level 137 mmol/L (136-145) Potassium Level 4.2 mmol/L (3.5-5.1) Chloride Level 101 mmol/L (98-107) Carbon Dioxide Level 29 mmol/L (20-31) Anion Gap 7 (5-15) Blood Urea Nitrogen 40 mg/dL (9-23) Creatinine 5.80 mg/dL (0.700-1.30) Glomerular Filtration Rate Calc 10 mL/min (>90) BUN/Creatinine Ratio 6.9 (10.0-20.0) Serum Glucose 250 mg/dL (74-106) Calcium Level 7.5 mg/dL (8.7-10.4) White Blood Count 3.6 10^3/uL (4.4-10.8) Red Blood Count 2.46 10^6/uL (4.5-5.90) Hemoglobin 8.7 g/dL (13.5-17.5) Hematocrit 24.8 % (41.0-53.0) Mean Corpuscular Volume 100.6 fL (80.0-100.0) Mean Corpuscular Hemoglobin 35.2 pg (28.0-32.0) Mean Corpuscular Hemoglobin Concent 34.9 g/dL (32.0-36.0) Red Cell Distribution Width 15.4 % (11.8-14.3) Platelet Count 112 10^3/uL (140-450) Mean Platelet Volume 7.5 fL (6.9-10.8) Neutrophils (%) (Auto) 66.2 % (37.0-80.0) Lymphocytes (%) (Auto) 14.4 % (10.0-50.0) Monocytes (%) (Auto) 8.3 % (0.0-12.0) Eosinophils (%) (Auto) 9.9 % (0.0-7.0) Basophils (%) (Auto) 1.2 % (0.0-2.0) Neutrophils # (Auto) 2.4 10 ^3/uL (1.6-8.6) Lymphocytes # (Auto) 0.5 10 ^3/uL (0.4-5.4) Monocytes # (Auto) 0.3 10 ^3/uL (0-1.3) Eosinophils # (Auto) 0.4 10 ^3/uL (0-0.8) Basophils # (Auto) 0 10 ^3/uL (0-0.2) Nucleated Red Blood Cells 0.0 % Random Vancomycin Level 15.4 ug/mL (5-10) Vitamin B12 Level 979 pg/mL (211-911) Folic Acid 21.48 ng/mL (>5.38) Free Thyroxine (T4) Calculated 0.83 ng/dL (0.89-1.76) Test 10/10/24 05:02 10/08/24 17:48 10/07/24 18:40 10/05/24 10:15 Hemoglobin A1c 6.0 % A1C (<5.7) Thyroid Stimulating Hormone (TSH) 4.98 uIU/mL (0.55-4.78) Phenytoin (Dilantin) Level 4.8 ug/mL (10-20) Prothrombin Time 12.4 sec (9.3-11.8) Prothrombin Time INR 1.18 (0.9-1.15) Activated Partial Thromboplast Time 39.3 SEC (24.5-34.5) Total Bilirubin 0.2 mg/dL (0.2-1.0) Aspartate Amino Transferase (AST) 16 U/L (13-40) Alanine Aminotransferase (ALT) 27 U/L (7-40) Alkaline Phosphatase 189 U/L (46-116) Ammonia < 10 umol/L (11-32) Total Protein 5.0 g/dL (5.7-8.2) Albumin 2.8 g/dL (3.2-4.8) Hepatitis A IgM Antibody Negative Hepatitis B Surface Antigen Negative (Negative) Hepatitis B Core IgM Antibody Negative (Negative) Hepatitis C Antibody Negative (Negative) Troponin I High Sensitivity 19 ng/L (</=54) Test 10/05/24 09:21 Phosphorus Level 4.3 mg/dL (2.4-5.1) Magnesium Level 2.4 mg/dL (1.6-2.6) Plasma/Serum Blood Alcohol < 3.0 mg/dL (<10) Other Laboratory Tests 10/14/24 15:11 10/12/24 10:45 Condition at Discharge: Fair Final Diagnosis/Problems List Breakthrough seizures: Continue home medication phenytoin and Keppra: Neurology consult by Dr. 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 Angel olea Hypoglycemia Patient noncompliance low levels of seizure medications Possible aspiration pneumonia: Zosyn vancomycin Discharge Disposition: Home Discharge Instruct/Medications Diet: Cardiac 2g Na,low cholest Activity: Light activity Follow Up/Referral: Continue all Previous home medications including seizure medications and follow up with your primary Dr and Neurologist Medications: Levaquin Transmitted to the pharmacy Reviewed all previous home meds Discharge Statement: "Patient was advised to return to the ER or call 911 if any headaches, dizziness, shortness of breath, chest pain, abdominal pain, bleeding, fevers, or worsening of medical condition. Patient was counseled about treatment plan, medications, possible side effects, patientverbalized understanding. All questions were answered to the best of my ability. This discharge took greater then 30 minutes in planning, reviewing documentation, counseling the patient, and discussing with other team members." ASSESSMENT ASSESSMENT Assessment Breakthrough seizures: Continue home medication phenytoin and Keppra: Neurology consult by Dr. 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 Angel olea Hypoglycemia Patient noncompliance low levels of seizure medications Possible aspiration pneumonia: Zosyn vancomycin Date of Service: Oct 15, 2024 Billing Provider: CHRISTI CUENCA DO Common Visit Codes: 37317-HCC/OBS DISCH DAY >30min CHRISTI CUENCA DO Oct 15, 2024 14:27
--- NOTE | 2024-10-15 18:10 | DVHPN2 ---
Progress Note Date Seen: Oct 15, 2024 Medical Necessity Reason Pt with a Central, PICC or Fol: No Subjective Patient reports: No new complaints ( bedside) Review of Systems: Deferred Objective vital signs Vital Sign Date Time Temp Pulse Resp B/P (MAP) Pulse Ox O2 Delivery O2 Flow Rate FiO2 10/15/24 15:27 98.7 67 16 96 10/15/24 13:00 167/31 (76) 10/15/24 10:00 Nasal Cannula 1.0 10/15/24 10:00 24 Total Intake and Output 10/14/24 10/14/24 10/15/24 15:00 23:00 07:00 Intake Total 420 ml 240 ml Balance 420 ml 240 ml medications Current Medications Medications Dose Ordered Sig/Terrance Route Start Time Stop Time Status Last Admin Dose Admin Levetiracetam 250 mg/Sodium Chloride 52.5 ml @ 206.107 mls/hr BID IV 10/05/24 22:00 Cancel Examination: GENERAL:Abnormal, LUNGS:Abnormal, NEURO:Normal laboratory and microbiology Laboratory Tests 10/14/24 15:11 10/12/24 10:45 Test 10/14/24 15:11 Range/Units Serum Glucose 250 H 74-106 mg/dL Microbiology Date/Time Source Procedure Growth Status 10/08/24 19:27 Blood Blood Culture - Final NO GROWTH AFTER 5 DAYS OF INCUBATION. Complete Problem List/Assessment/Plan Problem List/Assessment/Plan End-stage renal disease on hemodialysis Hypoglycemia Altered mental status Possible seizure? hx CVA Hyperkalemia Hemodialysis wednesday ,,next HD wednesday if still here Avoid hypotension Plan discussed with: Patient, Spouse, Other Dietary Evaluation Review Comments: encourage and monitor PO intakes to meet 75% of his needs Expected Outcomes/Goals: Improved nutrition related labe values RUPALI ALFARO MD Oct 15, 2024 18:10
--- NOTE | 2024-10-15 20:38 | DVHPN2 ---
Reviewed: Care Plan, H&P, Labs, Medications, Previous Orders, Radiology General: Per HPI Eyes: No Pain, No Vision change, No Conjunctivae inflammation, No Eyelid inflammation, No Other, No Redness ENT: No Ear pain, No Ear discharge, No Nose pain, No Nose discharge, No Nose congestion, No Mouth pain, No Mouth swelling, No Throat pain, No Throat swelling, No Other Respiratory: No Cough, No Dry, No Shortness of breath, No SOB with excertion, No Wheezing, No Hemoptysis, No Pleuritic Pain, No Sputum, No Other Musculoskeletal: other (Left-sided weakness due to prior stroke); No neck pain, No shoulder pain, No arm pain, No back pain, No hand pain, No leg pain, No foot pain Skin: No Rash, No Lesions, No Jaundice, No Bruising, No Other Objective Vitals Vital Signs Date Time Temp Pulse Resp B/P (MAP) Pulse Ox O2 Delivery O2 Flow Rate FiO2 10/15/24 15:27 98.7 67 16 96 10/15/24 13:00 167/31 (76) 10/15/24 10:00 Nasal Cannula 1.0 10/15/24 10:00 24 Intake/Output Intake and Output 10/15/24 07:00 Intake Total 660 ml Balance 660 ml Intake Oral 560 ml IV Total 100 ml # Bowel Movements 1 General Appearance: Alert, Other (Patient encephalopathic and not following commands) HEENT: Atraumatic, PERRLA Lungs: Other (Rhonchi to right base) Cardiovascular: Normal S1, Normal S2 Abdomen: Normal bowel sounds Musculoskeletal: Other (Left hemiplegia with right arm contracture) Extremities: No cyanosis, No edema, Normal pulses Neuro: Other (Aphasic) Psych/Mental Status: Other (Altered mental status) Medications Current Medications Medications Dose Ordered Sig/Terrance Route Start Time Stop Time Status Last Admin Dose Admin Levetiracetam 250 mg/Sodium Chloride 52.5 ml @ 206.107 mls/hr BID IV 10/05/24 22:00 Cancel Laboratory Results Laboratory Tests 10/12/24 10:45 10/14/24 15:11 Microbiology Microbiology Date/Time Source Procedure Growth Status 10/08/24 19:27 Blood Blood Culture - Final NO GROWTH AFTER 5 DAYS OF INCUBATION. Complete Assessment/Plan Assessment/Plan Impression: -metabolic encephalopathy -end-stage renal disease with hemodialysis -hyperkalemia -hypoglycemic episodes -aspiration pneumonia -sepsis -hypothyroidism -thrombocytopenia -diabetes mellitus -primary hypertension -history of CVA with left hemiplegia -aphasia -seizure disorder Plan: -long discussion made with patient's regarding possible PEG tube placement. She states that his normal mentation includes patient able to follow commands as well as speaking. She states that at the current presentation, this is not his current neurological status. All questions answered regarding PEG tube placement. She states that she would like to continue thinking about the procedure. Given the patient clinically is not of normal mentation at his baseline, recommend to continue treatment for aspiration pneumonia until patient presents improvement with aspiration risk before discharging. -continue antibiotic therapy with Unasyn -regular insulin sliding scale -HD per Nephrology, noted TTS -strict aspiration precaution -continue Keppra -continue antidiabetic medication with long-acting insulin, Tresiba -repeat labs and chest x-ray in a.m. Total time spent with patient discussing and formulating plan of care: 35 minutes. Total time spent with patient and family regarding advance care plannin minutes. This medical document was created using an electronic medical record system with [employer] dictation system. Although this document has been carefully reviewed, there may still be some phonetic and typographical errors. These areas are purely typographical due to imperfections of the software programs, and do not reflect any compromise in the patient's medical care. My Orders Orders - CHRISTI CUENCA DO Procedure Category Date Status Time Discharge DISCHARGE 10/15/24 Transmitted 14:27 CHRISTI CUENCA DO Oct 15, 2024 20:38
== END 2024-10-15 16:45 | disposition home or self-care (01) | DRG 100 ==
LOC: EDBD 08:55 → ER 08:55 → TELE 14:33 → TELE-WESTW 10-06 22:00
PROVIDERS: ADMIT Internal Medicine; ATTEND Internal Medicine
PROC: 5A1D70Z Performance of Urinary Filtration, Intermittent, Less than 6 Hours Per Day (ICD-10-PCS; principal; 2024-10-07)
PROC: 05HB33Z Insertion of Infusion Device into Right Basilic Vein, Percutaneous Approach (ICD-10-PCS; 2024-10-08)
PROC: B54MZZA Ultrasonography of Right Upper Extremity Veins, Guidance (ICD-10-PCS; 2024-10-08)
PROC: 5A1D70Z Performance of Urinary Filtration, Intermittent, Less than 6 Hours Per Day (ICD-10-PCS; 2024-10-10)
PROC: 5A1D70Z Performance of Urinary Filtration, Intermittent, Less than 6 Hours Per Day (ICD-10-PCS; 2024-10-12)
PROC: 5A1D70Z Performance of Urinary Filtration, Intermittent, Less than 6 Hours Per Day (ICD-10-PCS; 2024-10-14)
DX: G40.409 Other generalized epilepsy and epileptic syndromes, not intractable, without status epilepticus (principal); J69.0 Pneumonitis due to inhalation of food and vomit; N18.6 End stage renal disease; I69.354 Hemiplegia and hemiparesis following cerebral infarction affecting left non-dominant side; I12.0 Hypertensive chronic kidney disease with stage 5 chronic kidney disease or end stage renal disease; I16.1 Hypertensive emergency; E11.649 Type 2 diabetes mellitus with hypoglycemia without coma; D50.9 Iron deficiency anemia, unspecified; E03.9 Hypothyroidism, unspecified; E11.22 Type 2 diabetes mellitus with diabetic chronic kidney disease; D64.9 Anemia, unspecified; H54.62 Unqualified visual loss, left eye, normal vision right eye; E87.5 Hyperkalemia; D69.6 Thrombocytopenia, unspecified; E78.5 Hyperlipidemia, unspecified; R13.10 Dysphagia, unspecified; Z83.3 Family history of diabetes mellitus; Z99.2 Dependence on renal dialysis; Z79.899 Other long term (current) drug therapy; Z79.82 Long term (current) use of aspirin; Z91.199 Patient's noncompliance with other medical treatment and regimen due to unspecified reason; Z80.8 Family history of malignant neoplasm of other organs or systems; G40.909 Epilepsy, unspecified, not intractable, without status epilepticus; I16.0 Hypertensive urgency
CPT/HCPCS: 36415; 70450; 70496; 70498; 71045; 80048; 80053; 80074; 80185; 80202; 80320; 82140; 82565; 82607; 82746; 82962; 83036; 83735; 84100; 84439; 84443; 84484; 85025; 85610; 85730; 87040; 87077; 87186; 90935; 92610; 93005; 94640; 95819; 96365; 96375; 99291; G0378; J2405; J2543; J3490